=== PATIENT | male | born 1935 | race Caucasian/White ===

== ENCOUNTER 2017-10-30 19:04 | Emergency (ER) | payer MEDICARE, OTHER ==
--- NOTE | 2017-10-30 19:13 | EDM.PDOC ---
ED HPI GENERAL MEDICAL PROBLEM - General Chief Complaint: Gastrointestinal Problem Stated Complaint: constipated Time Seen by Provider: 10/30/17 19:12 Source of Information: Reports: Patient History Limitations: Reports: No Limitations - History of Present Illness INITIAL COMMENTS - FREE TEXT/NARRATIVE: HISTORY AND PHYSICAL: History of present illness: 82-year-old male presenting to emergency department with chief complaint of lower abdominal pain with past medical history of laryngeal and lung cancer currently being treated. Patient states he has not had a bowel movement for 10 days. This is common for him. He denies any history of bowel obstruction. Denies any bloody stool or dark tarry stools. States that on 10/24/17 he had a nasojejunal feeding tube placed in [facility]. It did come out he states yesterday and he put it in himself. Does report some chills, shakiness, and nausea and vomiting starting 2 days ago. No fevers, mild lower generalized abdominal pain. Does have a history of laryngeal and lung CA and has had a laryngectomy for this. Currently still being treated at oncology here in [place]. Full code. Currently denies any chest pain, palpitations, shortness of breath, syncopal episodes, or focal neurologic episodes. On exam nasojejual feeding tube is in place in nose. There's mild hypotonic bowel sounds no noted tympany. Mild generalized lower abdominal pain 2030: CBC,CMP, UA Unremarkable 2146: CT abdomen showed a subtle defect within the nephrogram of the right kidney, superior pole. Best seen on image 40, series 201. There was no perinephric inflammatory changes or fluid collection. The did recommend possible short-term ultrasound follow-up to assess persistence of the finding. Of note the feeding tube was found to be coiled within the stomach and there was no evidence of small bowel or colonic obstruction. There was also inverted findings of a fusiform infrarenal abdominal aortic aneurysm with dilation of the common iliac arteries and extensive degenerative atherosclerotic plaque. There is no retroperitoneal stranding or hematoma. Recommended sonographic surveillance of these findings. In addition, there was a spiculated area past the resident in the right lower lobe. Review of systems: As per history of present illness and below otherwise all systems reviewed and negative. Past medical history: As per history of present illness and as reviewed below otherwise noncontributory. Surgical history: As per history of present illness and as reviewed below otherwise noncontributory. Social history: No reported history of drug or alcohol abuse. Family history: As per history of present illness and as reviewed below otherwise noncontributory. Physical exam: HEENT: Atraumatic, normocephalic, pupils reactive, negative for conjunctival pallor or scleral icterus, mucous membranes moist, throat clear, neck supple, nontender, trachea midline. Lungs: Clear to auscultation, breath sounds equal bilaterally, chest nontender. Heart: S1S2, regular, negative for clicks, rubs, or JVD. Abdomen: Soft, nondistended, mild lower abdominal pain. Negative for masses or hepatosplenomegaly. Negative for costovertebral tenderness. Pelvis: Stable nontender. Genitourinary: Deferred. Rectal: Deferred. Extremities: Atraumatic, negative for cords or calf pain. Neurovascular unremarkable. Neuro: Awake, alert, oriented. Cranial nerves II through XII unremarkable. Cerebellum unremarkable. Motor and sensory unremarkable throughout. Exam nonfocal. Diagnostics: CBC, CMP, chest x-ray, UA/UC, CT abdomen and pelvis Therapeutics: 1 L normal saline Impression: Lower abdominal pain History laryngeal cancer History of lung cancer Constipation Plan: Please see H&P above: CBC, CMP, chest x-ray, UA, CT abdomen and pelvis were all unremarkable for new findings and patient most likely has constipation. Of note patient's nasojejunal tube was found to be coiled in the stomach. I discussed this with him and they're to call their surgeon tomorrow in [facility] for replacement. We did give the patient a Fleet enema for his constipation and patient did have a good bowel movement. Patient felt much improved after the bowel movement. He was discharged in good condition with instructions to call his surgeon tomorrow in [facility] for replacement of the nasojejunal tube. He is also following up with oncology tomorrow as well. We did talk about also returning the emergency department if he had any new or worsening symptoms. Definitive disposition and diagnosis as appropriate pending reevaluation and review of above. abdominal Pain Score (Numeric/FACES): 8 - Related Data Allergies Allergy/AdvReac Type Severity Reaction Status Date / Time No Known Allergies Allergy Verified 10/30/17 19:14 Home Meds: Home Meds Naloxegol Oxalate [Movantik] 25 mg PO DAILY 10/19/17 [History] Ondansetron HCl [Zofran] 8 mg PO ASDIRECTED PRN 10/19/17 [History] Promethazine HCl 25 mg PO ASDIRECTED PRN 10/19/17 [History] fentaNYL [Duragesic] 1 patch TRDERM ASDIRECTED 10/19/17 [History] Past Medical History HEENT History: Reports: Other (See Below) Other HEENT History: has dentures but does not wear them Cardiovascular History: Reports: CAD Respiratory History: Reports: COPD Gastrointestinal History: Reports: Colon Polyp, GERD Genitourinary History: Reports: BPH Oncologic (Cancer) History: Reports: Lung, Other (See Below) Other Oncologic History: laryngeal & lung cancer Dermatologic History: Reports: Psoriasis - Past Surgical History Head Surgeries/Procedures: Reports: None HEENT Surgical History: Reports: Other (See Below) Other HEENT Surgeries/Procedures: laryngectomy with stoma for laryngeal cancer Respiratory Surgical History: Reports: Other (See Below) Other Respiratory Surgeries/Procedures: laryngectomy with stoma GI Surgical History: Reports: Colonoscopy, Other (See Below) Other GI Surgeries/Procedures: hx gastrostomy tube placement and removal Oncologic Surgical History: Reports: Other (See Below) Other Oncologic Surgeries/Procedures: brian cath placement ED ROS GENERAL - Review of Systems Review Of Systems: ROS reveals no pertinent complaints other than HPI. ED EXAM, GENERAL - Physical Exam Exam: See Below Course - Vital Signs Last Recorded V/S: Last Vital Signs Temp 98.2 F 10/30/17 19:14 Pulse 97 10/30/17 19:37 Resp 18 10/30/17 19:37 BP 163/90 H 10/30/17 19:37 Pulse Ox 97 10/30/17 19:37 - Orders/Labs/Meds Orders: Active Orders 24 hr Category Date Time Status Enema [RC] ASDIRECTED Care 10/30/17 21:45 Active Abdomen Pelvis w Cont [CT] Stat Exams 10/30/17 19:38 Taken Chest 2V [CR] Stat Exams 10/30/17 19:38 Taken CULTURE URINE [RM] Stat Lab 10/30/17 20:25 Received UA W/MICROSCOPIC [URIN] Stat Lab 10/30/17 20:25 Ordered Sodium Chloride 0.9% [Saline Flush] Med 10/30/17 19:38 Active 10 ml FLUSH ASDIRECTED PRN Sodium Chloride 0.9% [Saline Flush] Med 10/30/17 19:38 Active 2.5 ml FLUSH ASDIRECTED PRN Sodium Chloride 0.9% [Saline Flush] Med 10/30/17 19:38 Active 2.5 ml FLUSH ASDIRECTED PRN Saline Lock Insert [OM.PC] Stat Oth 10/30/17 19:38 Ordered Medication Orders Sodium Chloride (Saline Flush) 2.5 ml FLUSH ASDIRECTED PRN PRN Reason: Keep Vein Open Sodium Chloride (Saline Flush) 10 ml FLUSH ASDIRECTED PRN PRN Reason: Keep Vein Open Sodium Chloride (Saline Flush) 2.5 ml FLUSH ASDIRECTED PRN PRN Reason: Keep Vein Open Labs: Laboratory Tests 10/30/17 10/30/17 10/30/17 Range/Units 20:00 20:00 20:25 WBC 8.34 (4.0-11.0) K/uL RBC 4.67 (4.50-5.90) M/uL Hgb 14.3 (13.0-17.0) g/dL Hct 41.6 (38.0-50.0) % MCV 89.1 (80.0-98.0) fL MCH 30.6 (27.0-32.0) pg MCHC 34.4 (31.0-37.0) g/dL RDW Std Deviation 49.3 (28.0-62.0) fl RDW Coeff of Stefani 16 H (11.0-15.0) % Plt Count 133 L (150-400) K/uL MPV 9.10 (7.40-12.00) fL Neut % (Auto) 78.4 (48.0-80.0) % Lymph % (Auto) 11.6 L (16.0-40.0) % [place] % (Auto) 9.4 (0.0-15.0) % Eos % (Auto) 0.2 (0.0-7.0) % Baso % (Auto) 0.4 (0.0-1.5) % Neut # (Auto) 6.5 H (1.4-5.7) K/uL Lymph # (Auto) 1.0 (0.6-2.4) K/uL [place] # (Auto) 0.8 (0.0-0.8) K/uL Eos # (Auto) 0.0 (0.0-0.7) K/uL Baso # (Auto) 0.0 (0.0-0.1) K/uL Nucleated RBC % 0.0 /100WBC Nucleated RBCs # 0 K/uL Sodium 136 (136-148) mmol/L Potassium 3.5 (3.5-5.1) mmol/L Chloride 98 (98-107) mmol/L Carbon Dioxide 28.2 (21.0-32.0) mmol/L BUN 9 (7.0-18.0) mg/dL Creatinine 0.8 (0.8-1.3) mg/dL Est Cr Clr Drug Dosing 65.41 mL/min Estimated GFR (MDRD) > 60.0 ml/min Glucose 84 (74-106) mg/dL Calcium 9.2 (8.5-10.1) mg/dL Total Bilirubin 0.7 (0.2-1.0) mg/dL AST 12 L (15-37) IU/L ALT 15 (14-63) IU/L Alkaline Phosphatase 81 (46-116) U/L Total Protein 6.9 (6.4-8.2) g/dL Albumin 3.3 L (3.4-5.0) g/dL Globulin 3.6 H (2.0-3.5) g/dL Albumin/Globulin Ratio 0.9 L (1.3-2.8) Lipase 60 L (73-393) U/L Urine Color YELLOW Urine Appearance HAZY Urine pH 6.0 (5.0-8.0) Ur Specific [place] 1.025 (1.001-1.035) Urine Protein TRACE (NEGATIVE) mg/dL Urine Glucose (UA) NEGATIVE (NEGATIVE) mg/dL Urine Ketones 15 H (NEGATIVE) mg/dL Urine Occult Blood NEGATIVE (NEGATIVE) Urine Nitrite NEGATIVE (NEGATIVE) Urine Bilirubin SMALL H (NEGATIVE) Urine Ictotest NEGATIVE Urine Urobilinogen 1.0 (<2.0) EU/dL Ur Leukocyte Esterase NEGATIVE (NEGATIVE) Urine RBC 0-2 (0-2/HPF) Urine WBC 0-2 (0-5/HPF) Ur Epithelial Cells RARE (NONE-FEW) Urine Bacteria FEW (NEGATIVE) Urine Mucus LIGHT (NONE-MOD) Meds: Medications Generic Name Dose Route Start Last Admin Trade Name Freq PRN Reason Stop Dose Admin Sodium Chloride 2.5 ml 10/30/17 19:38 Saline Flush FLUSH ASDIRECTED PRN Keep Vein Open Sodium Chloride 10 ml 10/30/17 19:38 Saline Flush FLUSH ASDIRECTED PRN Keep Vein Open Sodium Chloride 2.5 ml 10/30/17 19:38 Saline Flush FLUSH ASDIRECTED PRN Keep Vein Open Discontinued Medications Generic Name Dose Route Start Last Admin Trade Name Freq PRN Reason Stop Dose Admin Sodium Chloride 1,000 mls @ 999 mls/hr 10/30/17 19:38 10/30/17 20:12 Normal Saline IV 10/30/17 20:38 999 mls/hr BOLUS ONE Administration Iopamidol 100 ml 10/30/17 21:10 10/30/17 21:10 Isovue Multipack-370 (76%) IVPUSH 10/30/17 21:11 100 ml ONETIME STA Administration Ondansetron HCl 4 mg 10/30/17 19:38 10/30/17 20:13 Zofran IVPUSH 10/30/17 19:39 4 mg ONETIME ONE Administration Departure - Departure Time of Disposition: 22:31 Disposition: Home, Self-Care 01 Condition: Good Clinical Impression: Lower abdominal pain, History of lung cancer, History of laryngeal cancer Constipation Qualifiers: Constipation type: drug induced constipation Qualified Code(s): K59.03 - Drug induced constipation - Discharge Information Referrals: Dimas Jamil MD [Primary Care Provider] - Forms: ED Department Discharge Additional Instructions: My general discharge The following information is given to patients seen in the emergency department who are being discharged to home. This information is to outline your options for follow-up care. We provide all patients seen in our emergency department with a follow-up referral. The need for follow-up, as well as the timing and circumstances, are variable depending upon the specifics of your emergency department visit. If you don't have a primary care physician on staff, we will provide you with a referral. We always advise you to contact your personal physician following an emergency department visit to inform them of the circumstance of the visit and for follow-up with them and/or the need for any referrals to a consulting specialist. The emergency department will also refer you to a specialist when appropriate. This referral assures that you have the opportunity for follow-up care with a specialist. All of these measure are taken in an effort to provide you with optimal care, which includes your follow-up. Under all circumstances we always encourage you to contact your private physician who remains a resource for coordinating your care. When calling for follow-up care, please make the office aware that this follow-up is from your recent emergency room visit. If for any reason you are refused follow-up, please contact the [facility] Emergency Department at and asked to speak to the emergency department charge nurse. [facility] [address] [place] [id number] My General Surgery [facility] Specialty [facility] - General Surgery Professional Building [address] [place] [address], [address] [place] [address] Please follow-up with your general surgeon in [place] as we discussed for replacement of your nasojejunal tube as it is not in the correct spot and is coiled in your stomach as we discussed Return to the emergency department if any new or worsening symptoms as we discussed Follow-up with primary care provider. - My Orders Last 24 Hours: My Active Orders 10/30/17 19:38 Abdomen Pelvis w Cont [CT] Stat Chest 2V [CR] Stat Sodium Chloride 0.9% [Saline Flush] 10 ml FLUSH ASDIRECTED PRN Sodium Chloride 0.9% [Saline Flush] 2.5 ml FLUSH ASDIRECTED PRN Sodium Chloride 0.9% [Saline Flush] 2.5 ml FLUSH ASDIRECTED PRN Saline Lock Insert [OM.PC] Stat 10/30/17 20:25 CULTURE URINE [RM] Stat UA W/MICROSCOPIC [URIN] Stat 10/30/17 21:45 Enema [RC] ASDIRECTED - Assessment/Plan Last 24 Hours: My Active Orders 10/30/17 19:38 Abdomen Pelvis w Cont [CT] Stat Chest 2V [CR] Stat Sodium Chloride 0.9% [Saline Flush] 10 ml FLUSH ASDIRECTED PRN Sodium Chloride 0.9% [Saline Flush] 2.5 ml FLUSH ASDIRECTED PRN Sodium Chloride 0.9% [Saline Flush] 2.5 ml FLUSH ASDIRECTED PRN Saline Lock Insert [OM.PC] Stat 10/30/17 20:25 CULTURE URINE [RM] Stat UA W/MICROSCOPIC [URIN] Stat 10/30/17 21:45 Enema [RC] ASDIRECTED
[2017-10-30] MEDS ORDERED: Sodium Chloride 0.9% 2.5 ML Syringe FLUSH PRN ×2 (19:38)
[2017-10-30] MEDS ORDERED: Sodium Chloride 0.9% 1,000 ML IV ONE (19:38)
[2017-10-30] MEDS ORDERED: Ondansetron 4 MG/2 ML SDV IVPUSH ONE (19:38)
[2017-10-30] MEDS ORDERED: Sodium Chloride 0.9% 10 ML Syringe FLUSH PRN (19:38)
[2017-10-30 20:28] LABS: CHLORIDE,CL 98 mmol/L (98-107); SODIUM,NA 136 mmol/L (136-148)
[2017-10-30] MEDS ORDERED: Iopamidol 755 MG/ML 500 ML Multipack Bottle IVPUSH STA (21:10)
[2017-10-30 22:50] VITALS: BP 158/82
--- NOTE | 2017-10-31 15:20 | CR ---
EXAM DATE: 10/30/17 PATIENT'S AGE: 82 Patient: JAY DIEGO Facility: [place], [place] Site . Site : 1935 Study: XRay Chest [id number]/26/2018 9:11:34 PM Ordering Physician: Mukesh Jin Final Report: INDICATION: sob HISTORY: Shortness of breath. COMPARISON: None. TECHNIQUE: Chest, 2 views. FINDINGS: Diffuse pulmonary hyperinflation. There is no acute airspace disease. There is no pneumothorax. Heart size and pulmonary vasculature are within normal limits. Right IJ Port-A-Cath, with its tip in the SVC. There is an enteric catheter place, with its tip collimated off the field of view. IMPRESSION: 1. Pulmonary hyperinflation. 2. No acute airspace disease. Dictated by Jay Galloway MD @ 10/30/2017 9:31:05 PM Dictated by: Jay Galloway MD @ 10/30/2017 21:31:11 (Electronic Signature) Report Signed by Proxy. [facility]
--- NOTE | 2017-10-31 15:20 | CT ---
EXAM DATE: 10/30/17 PATIENT'S AGE: 82 Patient: GENA DIEGO Facility: [place], [place] Site . Site : 1935 Study: CT Abdomen/Pelvis [id number]/26/2018 9:12:51 PM Ordering Physician: Mukesh Jin Final Report: INDICATION: abdominal pain HISTORY: Abdominal pain. COMPARISON: KUB 10/27/2017. TECHNIQUE: CT of the abdomen and pelvis. 100 cc of Isovue-370 IV. Coronal/sagittal reconstruction images. FINDINGS: Lung bases: There is no pleural or pericardial effusion. The heart size is normal. Lung bases demonstrate linear scarring or atelectasis in the left lower lobe, lingula , and right middle lobe. There is an irregular opacity present in the right lower lobe which is indeterminate, measuring 18 mm in AP dimension. Formal chest CT may be obtained to further assess when clinically appropriate. Abdomen/pelvis: Low-dense hepatic lesions are compatible with benign cysts. No perihepatic ascites. No solid hepatic mass. No inflammatory changes about the gallbladder. Normal caliber biliary tree. There is a defect present in the nephrogram of the right kidney, which is seen best on image 70, series 203, and on series 201, image 40. This is nonspecific. There is no perinephric fluid collection. The spleen size is normal. There is no pancreatic mass. No pancreatic duct dilation. No glandular atrophy. There is a feeding tube in place. The catheter appears coiled within the stomach, with its tip in the distal body. There is no free air. Distended ahmadi of the urinary bladder. No wall thickening. Probable TURP defect in the prostate. Seminal vesicles appear symmetric. There is enteric contrast present in the colon. Diverticulosis present in the colon. No findings for diverticulitis. No wall thickening. No perienteric edema. No transition point to indicate a mechanical small bowel or colonic obstruction. The celiac axis and SMA are patent. GUILLERMO is patent. There is a fusiform infrarenal abdominal aortic aneurysm with no inflammatory stranding. There is extensive mural thrombus and calcific plaque. The aneurysm measures a maximum of 4.0 x 4.4 cm in AP and transverse dimensions. Right common iliac artery measures up to 18 mm in dimension. Left common iliac artery measures up to 16 mm in dimension. No adenopathy is seen by size criteria in the pelvis, retroperitoneum, gastrohepatic ligament, small bowel mesentery. No portal vein thrombosis. The SMV and splenic vein are patent. The bone windows demonstrate no lytic or blastic bone lesions. Degenerative changes are present throughout the endplates of the thoracolumbar spine. On sagittal reconstruction images, there is disc height loss and osteophytic spurring at the lumbosacral junction. Minimal anterolisthesis of L4 on L5. IMPRESSION: 1. Subtle defect within the nephrogram of the right kidney, superior pole. This is seen best on image 40, series 201. 2. There are no perinephric inflammatory changes or fluid collection. A short- term ultrasound follow-up is suggested to assess for persistence of this finding. This is seen along the medial aspect of the superior pole. 3. Feeding tube is coiled within the stomach. No evidence for a small bowel or colonic obstruction. 4. Fusiform infrarenal abdominal aortic aneurysm, with dilation of the common iliac arteries, and extensive degenerative atherosclerotic plaque. No retroperitoneal stranding or hematoma. Sonographic surveillance is suggested for this finding. 5. Spiculated pulmonary opacity present in the right lower lobe. See above discussion. Dictated by Gena Galloway MD @ 10/30/2017 9:39:11 PM Please note that all CT scans at this facility use dose modulation, iterative reconstruction, and/or weight-based dosing when appropriate to reduce radiation dose to as low as reasonably achievable. Dictated by: Gena Galloway MD @ 10/30/2017 21:39:28 (Electronic Signature) Report Signed by Proxy. [facility]
== END 2017-10-30 22:46 | disposition home or self-care (01) ==
LOC: MW.ED 19:04
DX: K59.03 Drug induced constipation (principal); Z79.899 Other long term (current) drug therapy; Z85.118 Personal history of other malignant neoplasm of bronchus and lung; Z85.21 Personal history of malignant neoplasm of larynx
CPT/HCPCS: 36415; 71046; 74177; 80053; 81001; 83690; 85025; 87086; 96361; 96374; 99284; J2405; J7040; Q9967; 99283

== ENCOUNTER 2017-11-04 06:33 | Day surgery (SDC) | payer MEDICARE, OTHER ==
--- NOTE | 2017-10-24 07:27 | PCM.PREANE ---
Preanesthetic Assessment - Procedure Proposed Procedure: EGD/PEG tube placement - Anesthesia/Transfusion/Family Hx Anesthesia History: Prior Anesthesia Without Reaction Family History of Anesthesia Reaction: No Transfusion History: No Prior Transfusion(s) - Review of Systems General: Appetite (loss; prior PEG before laryngectomy), Other Pulmonary: Other (maintenance of traceostomy) Cardiovascular: Other (CAD) - Physical Assessment NPO Status Date: 10/23/17 NPO Status Time: 22:00 Height: 5 ft 10 in Weight: 153 lb ASA Class: 3 Mental Status: Alert & Oriented x3 Dentition: Reports: Edentulous Thyro-Mental Finger Breadths: 4 Mouth Opening Finger Breadths: 3 ROM/Head Extension: Limited/Partial Lungs: Clear to Auscultation, Normal Respiratory Effort, Other (permanent trach stoma) Cardiovascular: Regular Rate, Regular Rhythm, No Murmurs - Allergies Allergies/Adverse Reactions: Allergies Allergy/AdvReac Type Severity Reaction Status Date / Time No Known Allergies Allergy Verified 10/19/17 08:03 - Blood Blood Available: No Product(s) Available: None - Anesthesia Plan Pre-Op Medication Ordered: None - Acknowledgements Anesthesia Type Planned: MAC (local by surgeon for PEG, tongue spray; possible general) Pt an Appropriate Candidate for the Planned Anesthesia: Yes Alternatives and Risks of Anesthesia Discussed w Pt/Guardian: Yes Pt/Guardian Understands and Agrees with Anesthesia Plan: Yes PreAnesthesia Questionnaire HEENT History: Reports: Other (See Below) Other HEENT History: has dentures but does not wear them Cardiovascular History: Reports: CAD Respiratory History: Reports: COPD Gastrointestinal History: Reports: Colon Polyp, GERD Genitourinary History: Reports: BPH Oncologic (Cancer) History: Reports: Lung, Other (See Below) Other Oncologic History: laryngeal & lung cancer Dermatologic History: Reports: Psoriasis - Past Surgical History Head Surgeries/Procedures: Reports: None HEENT Surgical History: Reports: Other (See Below) Other HEENT Surgeries/Procedures: laryngectomy with stoma for laryngeal cancer Respiratory Surgical History: Reports: Other (See Below) Other Respiratory Surgeries/Procedures: laryngectomy with stoma GI Surgical History: Reports: Colonoscopy, Other (See Below) Other GI Surgeries/Procedures: hx gastrostomy tube placement and removal Oncologic Surgical History: Reports: Other (See Below) Other Oncologic Surgeries/Procedures: brian cath placement - SUBSTANCE USE Smoking Status *Q: Former Smoker Recreational Drug Use History: No - HOME MEDS Home Medications: Home Meds Morphine Sulfate 1 dose PO ASDIRECTED PRN 10/19/17 [History] Naloxegol Oxalate [Movantik] 25 mg PO DAILY 10/19/17 [History] Ondansetron HCl [Zofran] 8 mg PO ASDIRECTED PRN 10/19/17 [History] Pegfilgrastim [Neulasta] 1 dose IV ONETIME 10/19/17 [History] Promethazine HCl 25 mg PO ASDIRECTED PRN 10/19/17 [History] Promethazine HCl [Phenergan] 25 mg RECTAL ASDIRECTED PRN 10/19/17 [History] Ranitidine HCl 150 mg PO BEDTIME 10/19/17 [History] fentaNYL [Duragesic] 1 patch TRDERM ASDIRECTED 10/19/17 [History] - CURRENT (IN HOUSE) MEDS Current Meds: Current Medications Lactated Ringer's (Ringers, Lactated) 1,000 mls @ 125 mls/hr IV ASDIRECTED BECCA Discontinued Medications Cefoxitin Sodium 2 gm/ Premix 50 mls @ 100 mls/hr IV ONETIME ONE Stop: 10/24/17 06:29
[~2017-11-04 06:33] MED LIST: Bupivacaine 0.5% 10 ML SDV ONE; Desflurane 240 ML Bottle ONE; Lactated Ringers 1,000 ML IV SCH; Lidocaine 2% Jelly 30 ML Tube ONE; Midazolam 1 MG/ML 2 ML SDV ONE; Propofol 200 MG/20 ML SDV ONE; Sodium Chloride 0.9% 20 ML ONE; cefOXitin 1 GM Vial ONE; cefOXitin 2 GM in Premix Bag 1 BAG IV ONE
[2017-11-04] MEDS ORDERED: Ondansetron 4 MG/2 ML SDV ONE ×2 (07:12→07:18)
[2017-11-04] MEDS ORDERED: Propofol 200 MG/20 ML SDV ONE ×2 (07:15)
[2017-11-04] MEDS ORDERED: Midazolam 1 MG/ML 2 ML SDV ONE (07:16)
[2017-11-04] MEDS ORDERED: fentaNYL 100 MCG/2 ML SDV ONE ×2 (07:16→09:48)
[2017-11-04] MEDS ORDERED: Bupivacaine 0.5% 10 ML SDV ONE (07:38)
[2017-11-04] MEDS ORDERED: Sugammadex Sodium 200 MG/2 ML VIAL ONE (08:55)
[2017-11-04] MEDS ORDERED: Acetaminophen/HYDROcodone 325-5 MG Tab PO PRN (09:18)
[2017-11-04] MEDS ORDERED: Ondansetron 4 MG/2 ML SDV IVPUSH PRN (09:18)
--- NOTE | 2017-11-04 09:28 | PCM.OPNOTE ---
- General Post-Op/Procedure Note Date of Surgery/Procedure: 11/04/17 Operative Procedure(s): Attempted percutaneous endoscopic gastrostomy. Open surgical gastrostomy with 22 Lithuanian feeding tube. 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 Asst. needed for both procedures, especially for retraction. Role of Documentation Designer: bacteriology research assistant Fluid Replacement, Intraop: 1,200 EBL in mLs: 10 Drain/Tube Comments:: 22 Lithuanian feeding tube Condition: Good Free Text/Narrative:: DICTATION [id number] CPT CODE 64673
[2017-11-04] MEDS: Morphine 10 MG/ML Syringe IVPUSH PRN ×2 (09:30→09:37)
[2017-11-04] MEDS ORDERED: Lactated Ringers 1,000 ML IV SCH (09:30)
[2017-11-04] MEDS ORDERED: fentaNYL 100 MCG/2 ML SDV IVPUSH PRN (09:46)
--- NOTE | 2017-11-04 09:49 | PCM.POSTAN ---
POST ANESTHESIA ASSESSMENT - MENTAL STATUS Mental Status: Alert, Oriented - RESPIRATORY Respiratory Status: Respiratory Rate WNL, Airway Patent, O2 Saturation Stable - CARDIOVASCULAR CV Status: Pulse Rate WNL, Blood Pressure Stable - GASTROINTESTINAL GI Status: No Symptoms - PAIN Pain Score: 6 (tx with MS and fentanyl in PAR) - POST OP HYDRATION Hydration Status: Adequate & Stable - OBSERVATIONS Free Text/Narrative:: since he is continuously on narcotic at home, his requirement is greater. see orders and responses.
--- NOTE | 2017-11-04 13:20 | PCM48HPAN ---
Post Anesthesia Note - EVALUATION WITHIN 48HRS OF ANESTHETIC Vital Signs in Normal Range: Yes Patient Participated in Evaluation: Yes Respiratory Function Stable: Yes Airway Patent: Yes Cardiovascular Function Stable: Yes Hydration Status Stable: Yes Pain Control Satisfactory: Yes Nausea and Vomiting Control Satisfactory: Yes Mental Status Recovered: Yes Resp Rate: 10
[2017-11-04 13:56] VITALS: BP 157/71
--- NOTE | 2017-11-08 10:29 | OR ---
SURGEON: Serafin Rodriguez M.D. DATE OF PROCEDURE: 11/04/2017 OPERATION PERFORMED: Attempted percutaneous gastrostomy with completion open surgical gastrostomy. SECURITY INSTALLATION TECHNICIAN: Stacie Jara MD. ANESTHESIA: General via permanent tracheostomy. 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 ASA CLASSIFICATION: III. INTRAOPERATIVE BLOOD LOSS: 10 mL. INTRAOPERATIVE FLUID REPLACEMENT: 1200 mL of crystalloid. DESCRIPTION OF PROCEDURE: The patient was taken to the operating room and placed on the operating table in the supine position. Time-out was obtained for appropriate identification of patient and procedure. The patient was given a general anesthetic with the endotracheal tube placed through his permanent tracheostomy. A bite block was placed between the patient's teeth and the gastroscope was inserted into the oropharynx. We could follow the nasal feeding tube down, but we could never traverse the recurrent disease and the procedure was terminated as there was concern that there would be bleeding and we would not be able to place the tube. Therefore, the decision was made to convert to an open procedure. With the patient maintained under general endotracheal anesthesia, the abdomen was prepped with DuraPrep solution. Sterile drapes were applied. Appropriate site for skin incision in the upper abdomen was made and infiltrated with 1% xylocaine. The skin incision was made and deepened through the subcutaneous tissue obtaining hemostasis with the use of electrocautery. The fascia was opened in the midline and the peritoneal cavity was entered. Adhesions from his previous gastrostomy were taken down. Appropriate site on the stomach was identified and concentric pursestring sutures of 2-0 silk suture were placed and held with hemostats. Appropriate site on the anterior abdominal wall was chosen for placement of the feeding tube. The skin incision was made and again hemostasis obtained with the use of electrocautery. The peritoneal cavity was entered with a Carm[place] clamp and the 22-Lithuanian feeding tube was positioned through that incision into the peritoneal cavity. A small surgical gastrostomy was made using electrocautery. The balloon was checked and was complete. The catheter was then inserted into the stomach and the balloon inflated with 12 mL of saline solution. The balloon was then snugged up against the anterior gastric wall. Two more sutures were placed on the stomach and the stomach was then tacked to the anterior abdominal wall with a total of 4 sutures. The catheter was irrigated and flushed easily. The sutures were cut to appropriate length and the catheter secured to the skin with 2-0 silk sutures. The midline fascia was then closed with interrupted 0 Ethibond. The skin was infiltrated the second time with 6 mL of 0.5% Marcaine solution. Subcutaneous tissue was closed with running 3-0 Vicryl and the skin edges reapproximated with subcuticular 4-0 Monocryl. The incision was then Steri-Stripped. Dressing sponge was placed over the gastrostomy site and the incision was dressed with a sterile Tegaderm pad. Sponge, needle, and instrument counts were all correct. The patient tolerated the procedure well and following emergence from anesthesia and extubation, was taken to recovery room in satisfactory condition. LANA TOBAR /[id number]
== END 2017-11-04 12:15 | disposition home or self-care (01) ==
LOC: MW.SDS 06:33
PROVIDERS: ATTEND Surgery
DX: C32.9 Malignant neoplasm of larynx, unspecified (principal); Z53.9 Procedure and treatment not carried out, unspecified reason; J44.9 Chronic obstructive pulmonary disease, unspecified; I25.10 Atherosclerotic heart disease of native coronary artery without angina pectoris; Z87.891 Personal history of nicotine dependence; Z79.899 Other long term (current) drug therapy
CPT/HCPCS: 36415; 85025; J2250; J2270; J2405; J2704; J3010; J3490; J7120; J0694

== ENCOUNTER 2017-11-07 09:20 | Inpatient (IN) | payer MEDICARE, OTHER ==
[2017-11-07] MEDS ORDERED: Ondansetron 4 MG/2 ML SDV IVPUSH ONE (09:31)
[2017-11-07] MEDS ORDERED: Sodium Chloride 0.9% 1,000 ML IV ONE (09:31)
[2017-11-07] MEDS ORDERED: Sodium Chloride 0.9% 2.5 ML Syringe FLUSH PRN (09:31)
[2017-11-07] MEDS ORDERED: Sodium Chloride 0.9% 10 ML Syringe FLUSH PRN (09:31)
[2017-11-07] MEDS ORDERED: fentaNYL 100 MCG/2 ML SDV IVPUSH ONE (09:31)
--- NOTE | 2017-11-07 09:39 | EDM.PDOC ---
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 There's been no fever or chills he has been nauseous but no vomiting. Review of systems: As per history of present illness and below otherwise all systems reviewed and negative. Past medical history: As per history of present illness and as reviewed below otherwise noncontributory. Surgical history: As per history of present illness and as reviewed below otherwise noncontributory. Social history: No reported history of drug or alcohol abuse. Family history: As per history of present illness and as reviewed below otherwise noncontributory. Physical exam: HEENT: Atraumatic, normocephalic, pupils reactive, mild conjunctival pallor no scleral icterus, mucous membranes dry, throat clear, neck supple, nontender, trachea midline. Lungs: Clear to auscultation, breath sounds equal bilaterally, chest nontender. Heart: S1S2, regular, negative for clicks, rubs, or JVD. Abdomen: Soft, nondistended, no localized tenderness Negative for masses or hepatosplenomegaly. Negative for costovertebral tenderness. Pelvis: Stable nontender. Genitourinary: Deferred. Rectal: Deferred. Extremities: Atraumatic, negative for cords or calf pain. Neurovascular unremarkable. Neuro: Awake, alert, oriented. Follows commands and moves all extremities limited grossly nonfocal exam Diagnostics: CBC CMP PT/INR amylase lipase UA urine culture blood culture chest x-ray CT abdomen and pelvis EKG Therapeutics: Normal saline 1 L bolus fentanyl 50 g IV Zofran 4 mg IV Impression: #1 metastatic head and neck cancer #2 abdominal pain #3 dehydration Definitive disposition and diagnosis as appropriate pending reevaluation and review of above. - Related Data Allergies Allergy/AdvReac Type Severity Reaction Status Date / Time No Known Allergies Allergy Verified 10/30/17 19:14 Home Meds: Home Meds Naloxegol Oxalate [Movantik] 25 mg PO DAILY 10/19/17 [History] Ondansetron HCl [Zofran] 8 mg PO ASDIRECTED PRN 10/19/17 [History] Promethazine HCl 25 mg PO ASDIRECTED PRN 10/19/17 [History] fentaNYL [Duragesic] 50 mcg TRDERM ASDIRECTED 10/19/17 [History] Past Medical History HEENT History: Reports: Other (See Below) Other HEENT History: has dentures but does not wear them Cardiovascular History: Reports: CAD Respiratory History: Reports: COPD Gastrointestinal History: Reports: Colon Polyp, GERD Genitourinary History: Reports: BPH Oncologic (Cancer) History: Reports: Lung, Other (See Below) Other Oncologic History: laryngeal & lung cancer Dermatologic History: Reports: Psoriasis - Infectious Disease History Infectious Disease History: Reports: Chicken Pox, Measles, Mumps - Past Surgical History Head Surgeries/Procedures: Reports: None HEENT Surgical History: Reports: Other (See Below) Other HEENT Surgeries/Procedures: laryngectomy with stoma for laryngeal cancer Respiratory Surgical History: Reports: Other (See Below) Other Respiratory Surgeries/Procedures: laryngectomy with stoma GI Surgical History: Reports: Colonoscopy, Other (See Below) Other GI Surgeries/Procedures: hx gastrostomy tube placement and removal Oncologic Surgical History: Reports: Other (See Below) Other Oncologic Surgeries/Procedures: brian cath placement Social & Family History - Family History Family Medical History: Noncontributory ED ROS GENERAL - Review of Systems Review Of Systems: ROS reveals no pertinent complaints other than HPI. ED EXAM, GENERAL - Physical Exam Exam: See Below (dictation) Course - Vital Signs Last Recorded V/S: Last Vital Signs Temp 96.8 C H 11/07/17 09:31 Pulse 89 11/07/17 09:31 Resp 18 11/07/17 09:31 BP Pulse Ox 95 11/07/17 09:31 - Orders/Labs/Meds Orders: Active Orders 24 hr Category Date Time Status EKG Documentation Completion [RC] STAT Care 11/07/17 09:30 Active Pulse Oximetry [RC] ASDIRECTED Care 11/07/17 09:30 Active Abdomen Pelvis wo Cont [CT] Stat Exams 11/07/17 09:31 Taken Chest 1V Frontal [CR] Stat Exams 11/07/17 09:31 Taken CULTURE BLOOD [BC] Stat Lab 11/07/17 09:47 Received CULTURE BLOOD [BC] Stat Lab 11/07/17 10:45 Received CULTURE URINE [RM] Stat Lab 11/07/17 09:31 Ordered UA W/O MICROSCOPIC [URIN] Stat Lab 11/07/17 09:31 Ordered Sodium Chloride 0.9% [Saline Flush] Med 11/07/17 09:31 Active 10 ml FLUSH ASDIRECTED PRN Sodium Chloride 0.9% [Saline Flush] Med 11/07/17 09:31 Active 2.5 ml FLUSH ASDIRECTED PRN Vancomycin [Vancocin] 1 gm Med 11/07/17 11:12 Active Sodium Chloride 0.9% [Normal Saline] 250 ml IV ONETIME Blood Culture x2 Reflex Set [OM.PC] Stat Oth 11/07/17 09:31 Ordered Saline Lock Insert [OM.PC] Stat Oth 11/07/17 09:30 Ordered Medication Orders Vancomycin HCl 1 gm/ Sodium (Chloride) 250 mls @ 166 mls/hr IV ONETIME ONE Stop: 11/07/17 12:42 Sodium Chloride (Saline Flush) 10 ml FLUSH ASDIRECTED PRN PRN Reason: Keep Vein Open Sodium Chloride (Saline Flush) 2.5 ml FLUSH ASDIRECTED PRN PRN Reason: Keep Vein Open Labs: Laboratory Tests 11/07/17 11/07/17 11/07/17 Range/Units 09:47 09:47 09:47 WBC 23.13 H (4.0-11.0) K/uL RBC 3.99 L (4.50-5.90) M/uL Hgb 12.4 L (13.0-17.0) g/dL Hct 36.3 L (38.0-50.0) % MCV 91.0 (80.0-98.0) fL MCH 31.1 (27.0-32.0) pg MCHC 34.2 (31.0-37.0) g/dL RDW Std Deviation 55.0 (28.0-62.0) fl RDW Coeff of Stefani 17 H (11.0-15.0) % Plt Count 96 L (150-400) K/uL MPV 9.60 (7.40-12.00) fL Add Manual Diff YES Neutrophils % (Manual) 87 H (48.0-80.0) % Band Neutrophils % 9 % Lymphocytes % (Manual) 3 L (16.0-40.0) % Monocytes % (Manual) 1 (0.0-15.0) % Nucleated RBC % 0.0 /100WBC Absolute Seg Neuts 20.1 H (1.4-5.7) Band Neutrophils # 2.1 Lymphocytes # (Manual) 0.7 (0.6-2.4) Monocytes # (Manual) 0.2 (0.0-0.8) Nucleated RBCs # 0 K/uL INR 1.10 Sodium 138 (136-148) mmol/L Potassium 4.0 (3.5-5.1) mmol/L Chloride 100 (98-107) mmol/L Carbon Dioxide 29.9 (21.0-32.0) mmol/L BUN 10 (7.0-18.0) mg/dL Creatinine 0.8 (0.8-1.3) mg/dL Est Cr Clr Drug Dosing TNP Estimated GFR (MDRD) > 60.0 ml/min Glucose 122 H (74-106) mg/dL Calcium 8.8 (8.5-10.1) mg/dL Total Bilirubin 1.0 (0.2-1.0) mg/dL AST 31 (15-37) IU/L ALT 24 (14-63) IU/L Alkaline Phosphatase 100 (46-116) U/L Total Protein 6.8 (6.4-8.2) g/dL Albumin 3.2 L (3.4-5.0) g/dL Globulin 3.6 H (2.0-3.5) g/dL Albumin/Globulin Ratio 0.9 L (1.3-2.8) Amylase 21 L (25-115) U/L Lipase 60 L (73-393) U/L Meds: Medications Generic Name Dose Route Start Last Admin Trade Name Freq PRN Reason Stop Dose Admin Vancomycin HCl 1 gm/ Sodium 250 mls @ 166 mls/hr 11/07/17 11:12 Chloride IV 11/07/17 12:42 ONETIME ONE Sodium Chloride 10 ml 11/07/17 09:31 Saline Flush FLUSH ASDIRECTED PRN Keep Vein Open Sodium Chloride 2.5 ml 11/07/17 09:31 Saline Flush FLUSH ASDIRECTED PRN Keep Vein Open Discontinued Medications Generic Name Dose Route Start Last Admin Trade Name Freq PRN Reason Stop Dose Admin Fentanyl 50 mcg 11/07/17 09:31 11/07/17 10:52 Sublimaze IVPUSH 11/07/17 09:32 50 mcg ONETIME ONE Administration Sodium Chloride 1,000 mls @ 999 mls/hr 11/07/17 09:31 Normal Saline IV 11/07/17 10:31 STAT ONE Piperacillin Sod/Tazobactam 50 mls @ 100 mls/hr 11/07/17 10:49 Sod 3.375 gm/ Sodium Chloride IV 11/07/17 11:18 ONETIME ONE Ondansetron HCl 4 mg 11/07/17 09:31 11/07/17 10:52 Zofran IVPUSH 11/07/17 09:32 4 mg ONETIME ONE Administration Departure - Departure Time of Disposition: 11:20 Disposition: Admitted As Inpatient 65 Condition: Serious Clinical Impression: Abdominal pain, Metastatic cancer, Leukocytosis, Hypoxemia - Discharge Information Referrals: PCP,None [Primary Care Provider] - Forms: ED Department Discharge - My Orders Last 24 Hours: My Active Orders 11/07/17 09:30 EKG Documentation Completion [RC] STAT Pulse Oximetry [RC] ASDIRECTED Saline Lock Insert [OM.PC] Stat 11/07/17 09:31 Abdomen Pelvis wo Cont [CT] Stat Chest 1V Frontal [CR] Stat CULTURE URINE [RM] Stat UA W/O MICROSCOPIC [URIN] Stat Sodium Chloride 0.9% [Saline Flush] 10 ml FLUSH ASDIRECTED PRN Sodium Chloride 0.9% [Saline Flush] 2.5 ml FLUSH ASDIRECTED PRN Blood Culture x2 Reflex Set [OM.PC] Stat 11/07/17 09:47 CULTURE BLOOD [BC] Stat 11/07/17 10:45 CULTURE BLOOD [BC] Stat 11/07/17 11:12 Vancomycin [Vancocin] 1 gm Sodium Chloride 0.9% [Normal Saline] 250 ml IV ONETIME - Assessment/Plan Last 24 Hours: My Active Orders 11/07/17 09:30 EKG Documentation Completion [RC] STAT Pulse Oximetry [RC] ASDIRECTED Saline Lock Insert [OM.PC] Stat 11/07/17 09:31 Abdomen Pelvis wo Cont [CT] Stat Chest 1V Frontal [CR] Stat CULTURE URINE [RM] Stat UA W/O MICROSCOPIC [URIN] Stat Sodium Chloride 0.9% [Saline Flush] 10 ml FLUSH ASDIRECTED PRN Sodium Chloride 0.9% [Saline Flush] 2.5 ml FLUSH ASDIRECTED PRN Blood Culture x2 Reflex Set [OM.PC] Stat 11/07/17 09:47 CULTURE BLOOD [BC] Stat 11/07/17 10:45 CULTURE BLOOD [BC] Stat 11/07/17 11:12 Vancomycin [Vancocin] 1 gm Sodium Chloride 0.9% [Normal Saline] 250 ml IV ONETIME
[2017-11-07 10:15] LABS: CHLORIDE,CL 100 mmol/L (98-107); SODIUM,NA 138 mmol/L (136-148)
[2017-11-07] MEDS ORDERED: Piperacillin/Tazobactam 3.375 GM in Sodium Chloride 0.9% 50 ML IV ONE (10:49)
[2017-11-07] MEDS ORDERED: fentaNYL 50 MCG/HR Transdermal Patch TRDERM SCH (13:15)
[2017-11-07] MEDS ORDERED: Heparin Sodium 5,000 Units/ML Vial SUBCUT SCH (13:15)
[2017-11-07] MEDS ORDERED: Morphine 10 MG/ML Syringe IVPUSH PRN (13:15)
[2017-11-07] MEDS ORDERED: Ondansetron 4 MG/2 ML SDV IVPUSH PRN (13:15)
--- NOTE | 2017-11-07 13:25 | PCM.HP ---
H&P History of Present Illness - General Date of Service: 11/07/17 Admit Problem/Dx: Admission Diagnosis/Problem Admission Diagnosis/Problem Abdominal pain - History of Present Illness Initial Comments - Free Text/Narative: 82 yo male with pmh of head and neck cancer with mets to lung. He had G-tube placement on Tuesday and recently had chemotherapy with neulasta. Following G- tube placement he had increasing amount of abdominal pain that worsens with feeding. Reports nausea, but denies any blood in stool, fevers, cough, or shortness of breath. CT of the abdomen performed in ED shows G-tube in proper place but with large amount of free intraperitoneal air. Left Arm Pain Score (Numeric/FACES): 8 Abdomen Pain Score (Numeric/FACES): 2 - Related Data Allergies/Adverse Reactions: Allergies Allergy/AdvReac Type Severity Reaction Status Date / Time No Known Allergies Allergy Verified 10/30/17 19:14 Home Medications: Home Meds Naloxegol Oxalate [Movantik] 25 mg PO DAILY 10/19/17 [History] Ondansetron HCl [Zofran] 8 mg PO ASDIRECTED PRN 10/19/17 [History] Promethazine HCl 25 mg PO ASDIRECTED PRN 10/19/17 [History] fentaNYL [Duragesic] 50 mcg TRDERM ASDIRECTED 10/19/17 [History] Past Medical History HEENT History: Reports: Other (See Below) Other HEENT History: has dentures but does not wear them Cardiovascular History: Reports: CAD Respiratory History: Reports: COPD Gastrointestinal History: Reports: Colon Polyp, GERD Genitourinary History: Reports: BPH Psychiatric History: Reports: None Oncologic (Cancer) History: Reports: Lung, Other (See Below) Other Oncologic History: laryngeal & lung cancer Dermatologic History: Reports: Psoriasis - Infectious Disease History Infectious Disease History: Reports: Chicken Pox, Measles, Mumps - Past Surgical History Head Surgeries/Procedures: Reports: None HEENT Surgical History: Reports: Other (See Below) Other HEENT Surgeries/Procedures: laryngectomy with stoma for laryngeal cancer Respiratory Surgical History: Reports: Other (See Below) Other Respiratory Surgeries/Procedures: laryngectomy with stoma GI Surgical History: Reports: Colonoscopy, Other (See Below) Other GI Surgeries/Procedures: hx gastrostomy tube placement and removal Oncologic Surgical History: Reports: Other (See Below) Other Oncologic Surgeries/Procedures: brian cath placement Social & Family History - Family History Family Medical History: Noncontributory - Tobacco Use Smoking Status *Q: Former Smoker Used Tobacco, but Quit: Yes Month/Year Tobacco Last Used: 03/2013 - Caffeine Use Caffeine Use: Reports: None - Recreational Drug Use Recreational Drug Use: No H&P Review of Systems - Review of Systems: Review Of Systems: ROS reveals no pertinent complaints other than HPI. Exam - Exam Exam: See Below - Vital Signs Vital Signs: Last Vital Signs Temp 96.8 C H 11/07/17 09:31 Pulse 89 11/07/17 09:31 Resp 18 11/07/17 09:31 BP Pulse Ox 95 11/07/17 09:31 Weight: 70.6 kg - Exam General: Alert, Oriented HEENT: Conjunctiva Clear Lungs: Clear to Auscultation, Normal Respiratory Effort Cardiovascular: Regular Rate, Regular Rhythm GI/Abdominal Exam: Soft, Non-Tender, No Distention, Other (G-tube in place) Extremities: Non-Tender, No Pedal Edema Skin: Warm, Dry, Intact - Patient Data Lab Results Last 24 hrs: Laboratory Results - last 24 hr 11/07/17 11/07/17 11/07/17 Range/Units 09:47 09:47 09:47 WBC 23.13 H (4.0-11.0) K/uL RBC 3.99 L (4.50-5.90) M/uL Hgb 12.4 L (13.0-17.0) g/dL Hct 36.3 L (38.0-50.0) % MCV 91.0 (80.0-98.0) fL MCH 31.1 (27.0-32.0) pg MCHC 34.2 (31.0-37.0) g/dL RDW Std Deviation 55.0 (28.0-62.0) fl RDW Coeff of Stefani 17 H (11.0-15.0) % Plt Count 96 L (150-400) K/uL MPV 9.60 (7.40-12.00) fL Add Manual Diff YES Neutrophils % (Manual) 87 H (48.0-80.0) % Band Neutrophils % 9 % Lymphocytes % (Manual) 3 L (16.0-40.0) % Monocytes % (Manual) 1 (0.0-15.0) % Nucleated RBC % 0.0 /100WBC Absolute Seg Neuts 20.1 H (1.4-5.7) Band Neutrophils # 2.1 Lymphocytes # (Manual) 0.7 (0.6-2.4) Monocytes # (Manual) 0.2 (0.0-0.8) Nucleated RBCs # 0 K/uL INR 1.10 Lactate (0.20-2.00) mmol/L Sodium 138 (136-148) mmol/L Potassium 4.0 (3.5-5.1) mmol/L Chloride 100 (98-107) mmol/L Carbon Dioxide 29.9 (21.0-32.0) mmol/L BUN 10 (7.0-18.0) mg/dL Creatinine 0.8 (0.8-1.3) mg/dL Est Cr Clr Drug Dosing TNP Estimated GFR (MDRD) > 60.0 ml/min Glucose 122 H (74-106) mg/dL Calcium 8.8 (8.5-10.1) mg/dL Total Bilirubin 1.0 (0.2-1.0) mg/dL AST 31 (15-37) IU/L ALT 24 (14-63) IU/L Alkaline Phosphatase 100 (46-116) U/L Total Protein 6.8 (6.4-8.2) g/dL Albumin 3.2 L (3.4-5.0) g/dL Globulin 3.6 H (2.0-3.5) g/dL Albumin/Globulin Ratio 0.9 L (1.3-2.8) Amylase 21 L (25-115) U/L Lipase 60 L (73-393) U/L 11/07/17 Range/Units 09:50 WBC (4.0-11.0) K/uL RBC (4.50-5.90) M/uL Hgb (13.0-17.0) g/dL Hct (38.0-50.0) % MCV (80.0-98.0) fL MCH (27.0-32.0) pg MCHC (31.0-37.0) g/dL RDW Std Deviation (28.0-62.0) fl RDW Coeff of Stefani (11.0-15.0) % Plt Count (150-400) K/uL MPV (7.40-12.00) fL Add Manual Diff Neutrophils % (Manual) (48.0-80.0) % Band Neutrophils % % Lymphocytes % (Manual) (16.0-40.0) % Monocytes % (Manual) (0.0-15.0) % Nucleated RBC % /100WBC Absolute Seg Neuts (1.4-5.7) Band Neutrophils # Lymphocytes # (Manual) (0.6-2.4) Monocytes # (Manual) (0.0-0.8) Nucleated RBCs # K/uL INR Lactate 1.4 (0.20-2.00) mmol/L Sodium (136-148) mmol/L Potassium (3.5-5.1) mmol/L Chloride (98-107) mmol/L Carbon Dioxide (21.0-32.0) mmol/L BUN (7.0-18.0) mg/dL Creatinine (0.8-1.3) mg/dL Est Cr Clr Drug Dosing Estimated GFR (MDRD) ml/min Glucose (74-106) mg/dL Calcium (8.5-10.1) mg/dL Total Bilirubin (0.2-1.0) mg/dL AST (15-37) IU/L ALT (14-63) IU/L Alkaline Phosphatase (46-116) U/L Total Protein (6.4-8.2) g/dL Albumin (3.4-5.0) g/dL Globulin (2.0-3.5) g/dL Albumin/Globulin Ratio (1.3-2.8) Amylase (25-115) U/L Lipase (73-393) U/L Result Diagrams: 11/08/17 05:02 11/08/17 05:02 Problem List Initiated/Reviewed/Updated: Yes Orders Last 24hrs: Active Orders 24 hr Category Date Time Status Patient Status [ADT] Stat ADT 11/07/17 11:23 Active EKG Documentation Completion [RC] STAT Care 11/07/17 09:30 Active Notify Provider Consults [RC] ASDIRECTED Care 11/07/17 11:25 Active Oxygen Therapy [RC] PRN Care 11/07/17 13:15 Ordered Pulse Oximetry [RC] ASDIRECTED Care 11/07/17 09:30 Active Up ad Jazmine [RC] ASDIRECTED Care 11/07/17 13:15 Ordered VTE/DVT Education [RC] PER UNIT ROUTINE Care 11/07/17 13:15 Ordered Vital Signs [RC] Q4H Care 11/07/17 13:15 Ordered Consult to Physician [CONS] Stat Cons 11/07/17 11:25 Active Abdomen Ltd [US] Stat Exams 11/07/17 13:13 Ordered Abdomen Pelvis wo Cont [CT] Stat Exams 11/07/17 09:31 Taken Chest 1V Frontal [CR] Stat Exams 11/07/17 09:31 Taken Chest wo Cont [CT] Stat Exams 11/07/17 13:14 Ordered CBC WITH AUTO DIFF [HEME] AM Lab 11/08/17 05:11 Ordered CBC WITH AUTO DIFF [HEME] AM Lab 11/09/17 05:11 Ordered CBC WITH AUTO DIFF [HEME] AM Lab 11/10/17 05:11 Ordered COMPREHENSIVE METABOLIC PN,CMP [CHEM] AM Lab 11/08/17 05:11 Ordered COMPREHENSIVE METABOLIC PN,CMP [CHEM] AM Lab 11/09/17 05:11 Ordered COMPREHENSIVE METABOLIC PN,CMP [CHEM] AM Lab 11/10/17 05:11 Ordered CULTURE BLOOD [BC] Stat Lab 11/07/17 09:47 Received CULTURE BLOOD [BC] Stat Lab 11/07/17 10:45 Received CULTURE URINE [RM] Stat Lab 11/07/17 09:31 Ordered UA W/O MICROSCOPIC [URIN] Stat Lab 11/07/17 09:31 Ordered Heparin Sodium Med 11/07/17 13:15 Ordered 5,000 units SUBCUT Q8H Morphine Med 11/07/17 13:15 Ordered 2 mg IVPUSH Q2H PRN Ondansetron [Zofran] Med 11/07/17 13:15 Ordered 4 mg IVPUSH Q4H PRN Piperacillin/Tazobactam [Piperacil-Tazobact] 3.375 gm Med 11/07/17 17:00 Ordered Sodium Chloride 0.9% [Normal Saline] 50 ml IV Q6H Sodium Chloride 0.9% @ 125 MLS/HR (1000ml) Med 11/07/17 13:15 Ordered Sodium Chloride 0.9% [Normal Saline] 1,000 ml IV ASDIRECTED Sodium Chloride 0.9% [Saline Flush] Med 11/07/17 09:31 Active 10 ml FLUSH ASDIRECTED PRN Sodium Chloride 0.9% [Saline Flush] Med 11/07/17 09:31 Active 2.5 ml FLUSH ASDIRECTED PRN Vancomycin Pharmacy to Dose [Pharmacy to Dose - Med 11/07/17 13:15 Ordered Vancomycin] 1 dose .XX ASDIRECTED fentaNYL [Duragesic] Med 11/07/17 13:15 Ordered 50 mcg TRDERM Q72H Blood Culture x2 Reflex Set [OM.PC] Stat Oth 11/07/17 09:31 Ordered Saline Lock Insert [OM.PC] Stat Oth 11/07/17 09:30 Ordered Sequential Compression Device [OM.PC] Per Unit Routine Oth 11/07/17 13:15 Ordered Resuscitation Status Routine Resus Stat 11/07/17 13:15 Ordered Medication Orders Fentanyl (Duragesic) 50 mcg TRDERM Q72H BECCA Piperacillin Sod/Tazobactam (Sod 3.375 gm/ Sodium Chloride) 50 mls @ 100 mls/ hr IV Q6H BECCA Sodium Chloride (Saline Flush) 10 ml FLUSH ASDIRECTED PRN PRN Reason: Keep Vein Open Sodium Chloride (Saline Flush) 2.5 ml FLUSH ASDIRECTED PRN PRN Reason: Keep Vein Open Vancomycin HCl (Pharmacy To Dose - Vancomycin) 1 dose .XX ASDIRECTED BECCA Assessment/Plan Comment:: 82 yo male admitted with abdominal pain, leukocytosis and free air on CT scan of abdomen. Dr. Erazo has been consulted and feels free air is likely post surgical and not perforation as patient has no peritoneal signs. Leukocytosis difficult to interpret in setting of neulasta and chemotherapy. We will cover empirically with Vancomycin and Zosyn, while obtain cultures from port and urine. Will check CT chest and RUQ ultrasound.
[2017-11-07] MEDS ORDERED: Morphine 2 MG/ML Syringe IV PRN (15:20)
[2017-11-07] MEDS: Sodium Chloride 0.9% 1,000 ML IV SCH ×2 (15:32→22:35)
[2017-11-07] MEDS: Piperacillin/Tazobactam 3.375 GM in Sodium Chloride 0.9% 50 ML IV SCH ×2 (16:11→23:53)
[2017-11-07] MEDS ORDERED: Promethazine 25 MG/ML SDV IM PRN (17:27)
--- NOTE | 2017-11-07 18:05 | PCM.SN ---
- Free Text/Narrative Note: pt seen, chart reviewed; Pt remarked the abd pain was gradually increased after the surgery Tuesday. there is not a point of sudden increase in abd pain; and presently he felt much better; peg has been used, there is no association of peg tube with abd pain; pt is on fentanyl patch; npo, only ice chips; do not use peg tube. start iv abx, repeat blood work, ct a/p w po/iv contrast, using gastrograffin only, no barium; hold off heparin for plt of 98
[2017-11-08] MEDS: Piperacillin/Tazobactam 3.375 GM in Sodium Chloride 0.9% 50 ML IV SCH ×4 (05:20→22:42)
[2017-11-08 05:35] LABS: CHLORIDE,CL 105 mmol/L (98-107); SODIUM,NA 138 mmol/L (136-148)
[2017-11-08] MEDS: Sodium Chloride 0.9% 1,000 ML IV SCH ×2 (07:44→16:09)
--- NOTE | 2017-11-08 08:44 | PCM.PN ---
- General Info Date of Service: 11/08/17 Subjective Update: The patient is a 82 year old male who presented with increasing abdominal pain with free air seen on CT. He had a G-Tube placed Tuesday11/04/17 and has had the pain since. This morning he states the pain is better, but still has more pain with movement. He was seen by Dr. Erazo yesterday who thought that the free air was from the tube placement, not perforation, but recommended CT ab/pelvis with IV/PO contrast. The patient has been NPO with only ice chips. He denies chest pain or shortness of breath. 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 - Review of Systems General: Denies: Fever Pulmonary: Reports: No Symptoms Cardiovascular: Reports: No Symptoms Gastrointestinal: Reports: Abdominal Pain, Nausea, Vomiting Skin: Reports: No Symptoms Neurological: Reports: No Symptoms Psychiatric: Reports: No Symptoms - Patient Data Vitals - Most Recent: Last Vital Signs Temp 97.9 F 11/08/17 04:00 Pulse 69 11/08/17 07:00 Resp 13 11/08/17 07:00 BP 105/52 L 11/08/17 07:00 Pulse Ox 95 11/08/17 07:00 Weight - Most Recent: 68.5 kg I&O - Last 24 Hours: Intake & Output 11/07/17 11/08/17 11/08/17 22:59 06:59 14:59 Intake Total 1270 642 Output Total 710 375 Balance 560 267 Lab Results Last 24 Hours: Laboratory Results - last 24 hr 11/07/17 11/07/17 11/07/17 Range/Units 09:47 09:47 09:47 WBC 23.13 H (4.0-11.0) K/uL RBC 3.99 L (4.50-5.90) M/uL Hgb 12.4 L (13.0-17.0) g/dL Hct 36.3 L (38.0-50.0) % MCV 91.0 (80.0-98.0) fL MCH 31.1 (27.0-32.0) pg MCHC 34.2 (31.0-37.0) g/dL RDW Std Deviation 55.0 (28.0-62.0) fl RDW Coeff of Stefani 17 H (11.0-15.0) % Plt Count 96 L (150-400) K/uL MPV 9.60 (7.40-12.00) fL Add Manual Diff YES Neutrophils % (Manual) 87 H (48.0-80.0) % Band Neutrophils % 9 % Lymphocytes % (Manual) 3 L (16.0-40.0) % Monocytes % (Manual) 1 (0.0-15.0) % Eosinophils % (Manual) (0.0-7.0) % Nucleated RBC % 0.0 /100WBC Absolute Seg Neuts 20.1 H (1.4-5.7) Band Neutrophils # 2.1 Lymphocytes # (Manual) 0.7 (0.6-2.4) Monocytes # (Manual) 0.2 (0.0-0.8) Eosinophils # (Manual) (0.0-0.7) Nucleated RBCs # 0 K/uL INR 1.10 Lactate (0.20-2.00) mmol/L Sodium 138 (136-148) mmol/L Potassium 4.0 (3.5-5.1) mmol/L Chloride 100 (98-107) mmol/L Carbon Dioxide 29.9 (21.0-32.0) mmol/L BUN 10 (7.0-18.0) mg/dL Creatinine 0.8 (0.8-1.3) mg/dL Est Cr Clr Drug Dosing TNP Estimated GFR (MDRD) > 60.0 ml/min Glucose 122 H (74-106) mg/dL Calcium 8.8 (8.5-10.1) mg/dL Total Bilirubin 1.0 (0.2-1.0) mg/dL AST 31 (15-37) IU/L ALT 24 (14-63) IU/L Alkaline Phosphatase 100 (46-116) U/L Total Protein 6.8 (6.4-8.2) g/dL Albumin 3.2 L (3.4-5.0) g/dL Globulin 3.6 H (2.0-3.5) g/dL Albumin/Globulin Ratio 0.9 L (1.3-2.8) Amylase 21 L (25-115) U/L Lipase 60 L (73-393) U/L Urine Color Urine Appearance Urine pH (5.0-8.0) Ur Specific [place] (1.001-1.035) Urine Protein (NEGATIVE) mg/dL Urine Glucose (UA) (NEGATIVE) mg/dL Urine Ketones (NEGATIVE) mg/dL Urine Occult Blood (NEGATIVE) Urine Nitrite (NEGATIVE) Urine Bilirubin (NEGATIVE) Urine Urobilinogen (<2.0) EU/dL Ur Leukocyte Esterase (NEGATIVE) 11/07/17 11/07/17 11/08/17 Range/Units 09:50 17:20 05:02 WBC 10.22 (4.0-11.0) K/uL RBC 3.17 L (4.50-5.90) M/uL Hgb 9.8 L (13.0-17.0) g/dL Hct 28.9 L (38.0-50.0) % MCV 91.2 (80.0-98.0) fL MCH 30.9 (27.0-32.0) pg MCHC 33.9 (31.0-37.0) g/dL RDW Std Deviation 54.9 (28.0-62.0) fl RDW Coeff of Stefani 17 H (11.0-15.0) % Plt Count 69 L (150-400) K/uL MPV 10.20 (7.40-12.00) fL Add Manual Diff YES Neutrophils % (Manual) 74 (48.0-80.0) % Band Neutrophils % 13 % Lymphocytes % (Manual) 10 L (16.0-40.0) % Monocytes % (Manual) 2 (0.0-15.0) % Eosinophils % (Manual) 1 (0.0-7.0) % Nucleated RBC % 0.0 /100WBC Absolute Seg Neuts 7.6 H (1.4-5.7) Band Neutrophils # 1.3 Lymphocytes # (Manual) 1.0 (0.6-2.4) Monocytes # (Manual) 0.2 (0.0-0.8) Eosinophils # (Manual) 0.1 (0.0-0.7) Nucleated RBCs # 0 K/uL INR Lactate 1.4 (0.20-2.00) mmol/L Sodium (136-148) mmol/L Potassium (3.5-5.1) mmol/L Chloride (98-107) mmol/L Carbon Dioxide (21.0-32.0) mmol/L BUN (7.0-18.0) mg/dL Creatinine (0.8-1.3) mg/dL Est Cr Clr Drug Dosing Estimated GFR (MDRD) ml/min Glucose (74-106) mg/dL Calcium (8.5-10.1) mg/dL Total Bilirubin (0.2-1.0) mg/dL AST (15-37) IU/L ALT (14-63) IU/L Alkaline Phosphatase (46-116) U/L Total Protein (6.4-8.2) g/dL Albumin (3.4-5.0) g/dL Globulin (2.0-3.5) g/dL Albumin/Globulin Ratio (1.3-2.8) Amylase (25-115) U/L Lipase (73-393) U/L Urine Color YELLOW Urine Appearance CLEAR Urine pH 7.0 (5.0-8.0) Ur Specific [place] 1.020 (1.001-1.035) Urine Protein NEGATIVE (NEGATIVE) mg/dL Urine Glucose (UA) 100 H (NEGATIVE) mg/dL Urine Ketones TRACE H (NEGATIVE) mg/dL Urine Occult Blood NEGATIVE (NEGATIVE) Urine Nitrite NEGATIVE (NEGATIVE) Urine Bilirubin NEGATIVE (NEGATIVE) Urine Urobilinogen 0.2 (<2.0) EU/dL Ur Leukocyte Esterase NEGATIVE (NEGATIVE) 11/08/17 Range/Units 05:02 WBC (4.0-11.0) K/uL RBC (4.50-5.90) M/uL Hgb (13.0-17.0) g/dL Hct (38.0-50.0) % MCV (80.0-98.0) fL MCH (27.0-32.0) pg MCHC (31.0-37.0) g/dL RDW Std Deviation (28.0-62.0) fl RDW Coeff of Stefani (11.0-15.0) % Plt Count (150-400) K/uL MPV (7.40-12.00) fL Add Manual Diff Neutrophils % (Manual) (48.0-80.0) % Band Neutrophils % % Lymphocytes % (Manual) (16.0-40.0) % Monocytes % (Manual) (0.0-15.0) % Eosinophils % (Manual) (0.0-7.0) % Nucleated RBC % /100WBC Absolute Seg Neuts (1.4-5.7) Band Neutrophils # Lymphocytes # (Manual) (0.6-2.4) Monocytes # (Manual) (0.0-0.8) Eosinophils # (Manual) (0.0-0.7) Nucleated RBCs # K/uL INR Lactate (0.20-2.00) mmol/L Sodium 138 (136-148) mmol/L Potassium 3.5 (3.5-5.1) mmol/L Chloride 105 (98-107) mmol/L Carbon Dioxide 28.5 (21.0-32.0) mmol/L BUN 8 (7.0-18.0) mg/dL Creatinine 0.7 L (0.8-1.3) mg/dL Est Cr Clr Drug Dosing 77.36 Estimated GFR (MDRD) > 60.0 ml/min Glucose 84 (74-106) mg/dL Calcium 7.7 L (8.5-10.1) mg/dL Total Bilirubin 1.0 (0.2-1.0) mg/dL AST 24 (15-37) IU/L ALT 18 (14-63) IU/L Alkaline Phosphatase 72 (46-116) U/L Total Protein 5.0 L (6.4-8.2) g/dL Albumin 2.3 L (3.4-5.0) g/dL Globulin 2.7 (2.0-3.5) g/dL Albumin/Globulin Ratio 0.9 L (1.3-2.8) Amylase (25-115) U/L Lipase (73-393) U/L Urine Color Urine Appearance Urine pH (5.0-8.0) Ur Specific [place] (1.001-1.035) Urine Protein (NEGATIVE) mg/dL Urine Glucose (UA) (NEGATIVE) mg/dL Urine Ketones (NEGATIVE) mg/dL Urine Occult Blood (NEGATIVE) Urine Nitrite (NEGATIVE) Urine Bilirubin (NEGATIVE) Urine Urobilinogen (<2.0) EU/dL Ur Leukocyte Esterase (NEGATIVE) Med Orders - Current: Current Medications Fentanyl (Duragesic) 50 mcg TRDERM Q72H [facility] Last Admin: 11/07/17 15:01 Dose: 50 mcg Piperacillin Sod/Tazobactam (Sod 3.375 gm/ Sodium Chloride) 50 mls @ 100 mls/ hr IV Q6H [facility] Last Admin: 11/08/17 05:20 Dose: 100 mls/hr Vancomycin HCl 1 gm/ Sodium (Chloride) 250 mls @ 250 mls/hr IV Q12H [facility] Last Admin: 11/07/17 22:34 Dose: 250 mls/hr Sodium Chloride (Normal Saline) 1,000 mls @ 125 mls/hr IV ASDIRECTED [facility] Last Admin: 11/08/17 07:44 Dose: 125 mls/hr Morphine Sulfate (Morphine) 2 mg IV Q2H PRN PRN Reason: Pain (severe 7-10) Last Admin: 11/07/17 15:26 Dose: 2 mg Ondansetron HCl (Zofran) 4 mg IVPUSH Q4H PRN PRN Reason: Nausea Last Admin: 11/07/17 16:07 Dose: 4 mg Promethazine HCl (Phenergan) 25 mg IM Q6H PRN PRN Reason: Nausea/Vomiting Last Admin: 11/07/17 20:16 Dose: 25 mg Sodium Chloride (Saline Flush) 10 ml FLUSH ASDIRECTED PRN PRN Reason: Keep Vein Open Sodium Chloride (Saline Flush) 2.5 ml FLUSH ASDIRECTED PRN PRN Reason: Keep Vein Open Vancomycin HCl (Pharmacy To Dose - Vancomycin) 1 dose .XX ASDIRECTED [facility] Discontinued Medications Fentanyl (Sublimaze) 50 mcg IVPUSH ONETIME ONE Stop: 11/07/17 09:32 Last Admin: 11/07/17 10:52 Dose: 50 mcg Heparin Sodium (Porcine) (Heparin Sodium) 5,000 units SUBCUT Q8H [facility] Last Admin: 11/07/17 20:00 Dose: Not Given Sodium Chloride (Normal Saline) 1,000 mls @ 999 mls/hr IV STAT ONE Stop: 11/07/17 10:31 Last Admin: 11/07/17 09:30 Dose: 999 mls/hr Piperacillin Sod/Tazobactam (Sod 3.375 gm/ Sodium Chloride) 50 mls @ 100 mls/ hr IV ONETIME ONE Stop: 11/07/17 11:18 Last Admin: 11/07/17 11:28 Dose: 100 mls/hr Vancomycin HCl 1 gm/ Sodium (Chloride) 250 mls @ 166 mls/hr IV ONETIME ONE Stop: 11/07/17 12:42 Last Admin: 11/07/17 12:40 Dose: 166 mls/hr Morphine Sulfate (Morphine) 2 mg IVPUSH Q2H PRN PRN Reason: Pain (severe 7-10) Stop: 11/08/17 13:16 Ondansetron HCl (Zofran) 4 mg IVPUSH ONETIME ONE Stop: 11/07/17 09:32 Last Admin: 11/07/17 10:52 Dose: 4 mg - Exam General: Alert, Oriented, Other (Non verbal- uses board to communicate) Lungs: Wheezing Cardiovascular: Regular Rate, Regular Rhythm GI/Abdominal Exam: Normal Bowel Sounds, Soft, Tender (lower right and left quadrants) Extremities: No Pedal Edema Skin: Warm, Dry Wound/Incisions: Healing Well (G-tube) Psy/Mental Status: Alert - Problem List Review Problem List Initiated/Reviewed/Updated: Yes - Plan Plan:: 1. Abdominal pain with free air s/p G-tube placement- Patient is feeling better. Dr. Erazo was consulted, recommended CT ab/pelvis with IV/PO contrast. That is scheduled for this morning. Dr. Erazo is transfering care to Dr. Rodriguez. Pain control with fentaynl patch, morphine makes him sick. Continue NPO with only ice chips. We will appreciate any additional recommendations from general surgeryl. 2. Leukocytosis- resolved. Urine culture, blood cultures, and port culture still pending. Continue Vancomycin and Zosyn for now. 3. Thrombocytopenia- likely related to chemotherapy- worsening likely due to dilution from IV fluids- continue to monitor
--- NOTE | 2017-11-08 09:05 | CR ---
EXAM DATE: 11/07/17 PATIENT'S AGE: 82 Patient: GENA DIEGO Facility: [place], [place] Site . Site : 1935 Study: XRay Chest [id number]/3/2018 10:24:53 AM Ordering Physician: Wilda Loyola Final Report: INDICATION: Shortness of breath TECHNIQUE: Two view chest. Comparison chest x-ray 10/30/2017. FINDINGS: Stable cardiac mediastinal silhouette. Right Port-A-Cath. Lungs are clear of acute airspace or interstitial process. Curvilinear lucencies above the liver worrisome for possible free air versus distended air-filled loops of bowel. IMPRESSION: Curvilinear lucencies above the liver worrisome for possible free air versus distended air-filled loops of bowel. Consider abdominal pelvic CT scan to further assess. Dictated by Zoraida Wagner MD @ Nov 07 2017 10:39AM (Electronic Signature) Report Signed by Proxy. IDRIS
--- NOTE | 2017-11-08 09:06 | CT ---
EXAM DATE: 11/07/17 PATIENT'S AGE: 82 Patient: GENA DIEGO Facility: [place], [place] Site . Site : 1935 Study: CT Abdomen/Pelvis WO CONT [id number]/3/2018 10:26:27 AM Ordering Physician: Wilda Loyola Final Report: Indication: Pain. Patient states chemo on had PEG tube placed on Tuesday. Abdominal pain and bloating. Technique: Comparison: CT and pelvis 10/30/2017. Findings: Heart size normal. No pericardial or pleural effusion. Basilar strandy atelectasis. Irregular margin and opacity right lower lobe measuring 1.8 centimeters again seen on series 3, image 18. 4 millimeter right lower lobe pulmonary nodule on image 2. Fusiform infrarenal abdominal aortic aneurysm with extensive mural thrombus and atherosclerotic calcified plaque. Aneurysm measures 4 x 4.4 cm, unchanged. Right common iliac artery measures 1.8 cm. Left common iliac artery measures 1.6 cm. Unenhanced liver demonstrates small cyst. Slight increased attenuation within the gallbladder could be related to sludge. Pancreas adrenal glands spleen is unremarkable. Unenhanced kidneys are unremarkable. Vascular calcifications possible small nonobstructing stones. No hydronephrosis. TURP defect prostate gland. Urinary bladder is slightly distended without inflammatory change. Diverticulosis. Slight air distended colon. No obstruction. No obvious areas of bowel wall thickening or inflammatory change seen. Percutaneous gastrostomy tube appears in good position. There is a large amount of free intraperitoneal air most significant in the anterior abdomen at the level of the gastrostomy tube. This is more than expected for this procedure. There is a small amount of free fluid in the abdomen and pelvis. No suspicious bony lesions. Impression: 1. Percutaneous gastrostomy tube is in satisfactory position however there is a large amount of free intraperitoneal air which is more than expected primarily at the level of the gastrostomy tube in the anterior abdomen. Consider possible leak around the gastrostomy tube less likely viscus perforation without obvious site identified. Small amount of free fluid in the abdomen or pelvis. 2. Slight increased attenuation gallbladder could be related to sludge. 3. Infrarenal abdominal aortic aneurysm measuring 4.4 x 4 cm. Dilatation of the common iliac arteries. 4. Irregular marginated right lower lobe opacity with measuring 1.8 centimeters. Recommend dedicated chest CT. Please note that all CT scans at this facility use dose modulation, iterative reconstruction, and/or weight-based dosing when appropriate to reduce radiation dose to as low as reasonably achievable. Dictated by Zoraida Wagner MD @ Nov 07 2017 10:43AM (Electronic Signature) Report Signed by Proxy. MTDD
--- NOTE | 2017-11-08 09:09 | PCM.SN ---
- Free Text/Narrative Note: please switch consult to Dr. Rodriguez
[2017-11-08] MEDS ORDERED: Iopamidol 755 MG/ML 500 ML Multipack Bottle IVPUSH STA (09:10)
--- NOTE | 2017-11-08 09:31 | CT ---
EXAM DATE: 11/07/17 PATIENT'S AGE: 82 Patient: GENA DIEGO Facility: [place], [place] Site . Site : 1935 Study: CT Chest WO CONT [id number]/3/2018 1:40:04 PM Ordering Physician: Wilda Loyola Final Report: INDICATION: Leukocytosis, head and neck cancer metastasis TECHNIQUE: CT chest without i.v. contrast. Coronal and sagittal reformats were obtained. CONTRAST: None COMPARISON: None FINDINGS: Cardiovascular: Mild anemia is present with the cardiac chambers appearing lucent with respect to the myocardium. Moderate enlargement of the main pulmonary artery is present and measures 3.5 cm in maximal short axis. No sign of aneurysm seen in the thoracic aorta. The presence of aortic dissection cannot be evaluated without the use of intravenous contrast. Severe atherosclerotic calcifications are noted in the coronary arteries. Mediastinum: No mass or adenopathy seen. Lung: Consolidation and volume loss is present within the lingula and left lung base which likely due to atelectasis. Mucous plugging in the posterior basal segment of the right lower lobe noted. Moderate diffuse centrilobular emphysema is present. There is a 5 mm calcified granuloma present in the right lower lobe. Pleura and pericardium: Small left pleural effusion is present with pleural thickening and is heterogeneous in appearance. No significant pericardial effusion is present. Chest wall and axilla: No mass or adenopathy seen. Bone: Unremarkable for age. Upper abdomen: Unremarkable. Pneumoperitoneum and abdominal findings are present and discussed on CT abdominal report. IMPRESSIONS: 1. Moderate enlargement of the main pulmonary artery is present and measures 3.5 cm in maximal short axis. This is likely due to pulmonary hypertension. 2. Severe atherosclerotic calcifications are noted in the coronary arteries. 3. Small left pleural effusion is present with pleural thickening and is heterogeneous in appearance. Findings may be due to a small exudative type effusion. Dictated by Crow Morejon MD @ 11/07/2017 2:07:43 PM Please note that all CT scans at this facility use dose modulation, iterative reconstruction, and/or weight-based dosing when appropriate to reduce radiation dose to as low as reasonably achievable. Dictated by: Crow Morejon MD @ 11/07/2017 14:07:48 (Electronic Signature) Report Signed by Proxy. MTDD
--- NOTE | 2017-11-08 09:33 | US ---
EXAM DATE: 11/07/17 PATIENT'S AGE: 82 Patient: GENA DIEGO Facility: [place], [place] Site . Site : 1935 Study: US Abdomen [id number]/3/2018 2:00:29 PM Ordering Physician: Ethan Zuniga Final Report: INDICATION: Abdominal pain and bloating TECHNIQUE: Ultrasound abdomen limited. Sonographic images of the right upper quadrant were obtained using shelton-scale and color Doppler images. COMPARISON: None FINDINGS: Moderate degradation of image quality noted due to body habitus and large amount of bowel gas. Liver: The liver parenchyma is normal in echotexture. Gallbladder: The neck of the gallbladder is not well demonstrated. The gallbladder wall is normal in appearance. No pericholecystic fluid is present. No sonographic [place] sign is present. Common bile duct: Obscured by gas and cannot be visualized. No intrahepatic biliary ductal dilatation seen. Pancreas: The pancreas is obscured by bowel gas. Right Kidney: 10.6 cm. No hydronephrosis or ureterectasis is seen. Vascular: The IVC and aorta are obscured by bowel gas. The visualized portal vein is patent with normal anterograde flow. Miscellaneous: Trace ascites is noted. IMPRESSION: 1. Study extremely limited by overlying bowel gas. 2. Trace ascites is noted. Dictated by Crow Morejon MD @ 11/07/2017 2:20:37 PM Dictated by: Crow Morejon MD @ 11/07/2017 14:20:43 (Electronic Signature) Report Signed by Proxy. IDRIS
--- NOTE | 2017-11-08 10:21 | CONS ---
DATE OF CONSULTATION: 11/07/2017 DATE OF : 1935 PRIMARY CARE PHYSICIAN: None PCP CONCERNING QUESTION: Abdominal pain and free air. HISTORY OF PRESENT ILLNESS: The patient is an 82-year-old gentleman and carries a diagnosis of recurrent laryngeal cancer. The patient has resection in the past and radiation in the throat area and recently, he got gastrostomy feeding tube placement and he is postop day #3. He has open G-tube placement. The patient remarked that right after surgery when he went home, his pain level is about 5. He is on fentanyl patch for pain and over the cause, the pain slightly increased all the way to the 8 when he came to the emergency room and the G-tube has been used for sometime. Right now, in the emergency room, his pain level is 6; so right after postop it was 5, right now it is 6. The patient also does not have a stool formation after the surgery, and in the emergency room, the patient remarked feeling slightly better. PAST SURGICAL HISTORY: Laryngeal resection and feeding gastrostomy tube placement. PAST MEDICAL HISTORY: Denied diabetes, HI, CVA, hypertension. Carries a diagnosis of recurrent laryngeal cancer. ALLERGIES: Please refer to nursing notes for details. MEDICATIONS: Please refer to nursing notes for details. FAMILY HISTORY: Noncontributory. SOCIAL HISTORY: Former smoker all the way to 4 years ago. Patient quit smoking. Denied alcohol use. PHYSICAL EXAMINATION: GENERAL: A very pleasant, nice gentleman, smiled to the doctor, in no acute distress. HEENT: Normocephalic and atraumatic. Sclerae anicteric. LUNGS: Clear to auscultation. HEART: Regular rate and rhythm. ABDOMEN: Soft, nondistended, and localized tenderness on the right lower quadrant. No rebound tenderness. No peritoneal signs. LABORATORY DATA: White count 23. CAT scan of G-tube is in good position. No bowel wall thickening. Large amount of free air, more than from similar type of procedure. IMPRESSION: The patient with very elevated white count, leukocytosis with free air; however, is not peritoneal. The patient is 3 days from surgery. Possible perforated viscus more likely is probably postop change. We will stop using G-tube for the time being, and give IV antibiotic and we will order CAT scan. We will repeat CAT scan through the G-tube contrast using gastrografin only and we will follow the patient. ELIZABETH TOBAR /[id number]
--- NOTE | 2017-11-08 10:43 | CT ---
CT of the abdomen and pelvis with contrast. HISTORY: Recent PEG tube placement TECHNIQUE: Axial CT images were obtained of the abdomen and pelvis following administration of 85 mL of Isovue-370 without complication. Coronal and sagittal reconstructions obtained. FINDINGS: Atelectasis is noted within the lung bases. There is a tiny 3 mm nodule within the right lower lobe. Tiny cyst within the left hepatic lobe. The spleen, adrenal glands, and pancreas appear normal. Trace abdominal ascites. The gallbladder is normal. There is a gastric tube noted the tip in the stomach. No extravasation of oral contrast. The kidneys enhance and function symmetrically without evidence of obstructive uropathy. The large and small bowel are normal in caliber without evidence of obstruction. Moderate diverticulo sis without evidence of diverticulitis. Urinary bladder is notably distended. Aneurysmal dilatation o f the infrarenal abdominal aorta is noted measuring up to 3.8 cm. Small to moderate amount of free ai r is noted within the abdomen. Degenerative changes noted within the lumbar spine. Mild generalized osteopenia. IMPRESSION: 1. Small amount of free abdominal air. 2. Gastric tube noted with tip in the stomach. 3. Small amount of abdominal ascites. 4. Diverticulosis without evidence of diverticulitis. 5. Notable distention of the urinary bladder, correlate for bladder outlet obstruction. 6. Prominent arteriovascular calcifications and a 3.8 cm infrarenal abdominal aortic aneurysm. 7. Bibasilar atelectasis.
--- NOTE | 2017-11-08 18:00 | PCM.SN ---
- Free Text/Narrative Note: Patient has had a good day. Denies abdominal pain. Radiologic studies reviewed with Dr. Chester. Gastrostomy tube in appropriate position. Amount of air seen he feels is consistent with an open gastrostomy placement. EXAMINATION: Abdomen is soft and nontender. Good bowel sounds. Incision clean and dry. RECOMMENDATIONS: Full liquid to soft diet as tolerated. Supplement with tube feedings to supply about 1000 naveen/day. As disease progresses patient may require more supplementation. Can be transitioned to Med/Surg.
--- NOTE | 2017-11-08 18:40 | PCM.SN ---
- Free Text/Narrative Note: update 10/08/2017 6 pm After speaking with Dr. Rodriguez this afternoon, Dr. Rodriguez felt that the patient is improving quite significantly, the free air was anticipated as he did have to do an open procedure as part of the G-tube which does calm with the mild complication of mild free air in the abdomen, Dr. Rodriguez did have a discussion with Dr. Turner in radiology and both agree that there is no free air secondary to a perforation. Dr. Rodriguez would like for the patient to have his G-tube feedings started. The goal of G-tube feedings is for the patient to receive 6171-0467 naveen per day. Dietitian consult as well as PT consult has been placed as Dr. Rodriguez does believe that the patient should be stable enough to be discharged tomorrow.
[2017-11-09] MEDS: Sodium Chloride 0.9% 1,000 ML IV SCH (01:59)
[2017-11-09] MEDS: Piperacillin/Tazobactam 3.375 GM in Sodium Chloride 0.9% 50 ML IV SCH (04:09)
[2017-11-09 06:06] LABS: CHLORIDE,CL 105 mmol/L (98-107); SODIUM,NA 138 mmol/L (136-148)
--- NOTE | 2017-11-09 08:39 | PCM.PN ---
- General Info Date of Service: 11/09/17 - Patient Data Vitals - Most Recent: Last Vital Signs Temp 96.9 F 11/09/17 08:00 Pulse 76 11/09/17 04:00 Resp 20 11/09/17 08:00 BP 154/72 H 11/09/17 08:00 Pulse Ox 98 11/09/17 08:00 Weight - Most Recent: 71.2 kg I&O - Last 24 Hours: Intake & Output 11/08/17 11/09/17 11/09/17 22:59 06:59 14:59 Intake Total 1705 1375 240 Output Total 1000 200 Balance 705 1175 240 Lab Results Last 24 Hours: Laboratory Results - last 24 hr 11/09/17 11/09/17 Range/Units 05:28 05:28 WBC 3.83 L (4.0-11.0) K/uL RBC 3.02 L (4.50-5.90) M/uL Hgb 9.2 L (13.0-17.0) g/dL Hct 27.4 L (38.0-50.0) % MCV 90.7 (80.0-98.0) fL MCH 30.5 (27.0-32.0) pg MCHC 33.6 (31.0-37.0) g/dL RDW Std Deviation 55.8 (28.0-62.0) fl RDW Coeff of Stefani 17 H (11.0-15.0) % Plt Count 57 L (150-400) K/uL MPV 10.40 (7.40-12.00) fL Add Manual Diff YES Neutrophils % (Manual) 66 (48.0-80.0) % Band Neutrophils % 7 % Lymphocytes % (Manual) 17 (16.0-40.0) % Monocytes % (Manual) 1 (0.0-15.0) % Eosinophils % (Manual) 7 (0.0-7.0) % Basophils % (Manual) 2 H (0.0-1.5) % Nucleated RBC % 0.0 /100WBC Absolute Seg Neuts 2.5 (1.4-5.7) Band Neutrophils # 0.3 Lymphocytes # (Manual) 0.7 (0.6-2.4) Monocytes # (Manual) 0.0 (0.0-0.8) Eosinophils # (Manual) 0.3 (0.0-0.7) Basophils # (Manual) 0.1 (0.0-0.1) Nucleated RBCs # 0 K/uL Sodium 138 (136-148) mmol/L Potassium 3.4 L (3.5-5.1) mmol/L Chloride 105 (98-107) mmol/L Carbon Dioxide 29.4 (21.0-32.0) mmol/L BUN 7 (7.0-18.0) mg/dL Creatinine 0.7 L (0.8-1.3) mg/dL Est Cr Clr Drug Dosing 77.36 mL/min Estimated GFR (MDRD) > 60.0 ml/min Glucose 80 (74-106) mg/dL Calcium 7.9 L (8.5-10.1) mg/dL Total Bilirubin 0.7 (0.2-1.0) mg/dL AST 19 (15-37) IU/L ALT 19 (14-63) IU/L Alkaline Phosphatase 66 (46-116) U/L Total Protein 4.9 L (6.4-8.2) g/dL Albumin 2.2 L (3.4-5.0) g/dL Globulin 2.7 (2.0-3.5) g/dL Albumin/Globulin Ratio 0.8 L (1.3-2.8) Hima Results Last 24 Hours: Microbiology 11/07/17 10:45 Aerobic Blood Culture - Preliminary Blood - Venous - Lab Draw NO GROWTH AFTER 1 DAY Anaerobic Blood Culture - Preliminary NO GROWTH AFTER 1 DAY 11/07/17 09:47 Aerobic Blood Culture - Preliminary Blood - Venous NO GROWTH AFTER 1 DAY Anaerobic Blood Culture - Preliminary NO GROWTH AFTER 1 DAY Med Orders - Current: Current Medications Fentanyl (Duragesic) 50 mcg TRDERM Q72H [facility] Last Admin: 11/07/17 15:01 Dose: 50 mcg Piperacillin Sod/Tazobactam (Sod 3.375 gm/ Sodium Chloride) 50 mls @ 100 mls/ hr IV Q6H [facility] Last Admin: 11/09/17 04:09 Dose: 100 mls/hr Vancomycin HCl 1 gm/ Sodium (Chloride) 250 mls @ 250 mls/hr IV Q12H [facility] Last Admin: 11/08/17 21:02 Dose: 250 mls/hr Sodium Chloride (Normal Saline) 1,000 mls @ 125 mls/hr IV ASDIRECTED [facility] Last Admin: 11/09/17 01:59 Dose: 125 mls/hr Ondansetron HCl (Zofran) 4 mg IVPUSH Q4H PRN PRN Reason: Nausea Last Admin: 11/07/17 16:07 Dose: 4 mg Promethazine HCl (Phenergan) 25 mg IM Q6H PRN PRN Reason: Nausea/Vomiting Last Admin: 11/07/17 20:16 Dose: 25 mg Sodium Chloride (Saline Flush) 10 ml FLUSH ASDIRECTED PRN PRN Reason: Keep Vein Open Sodium Chloride (Saline Flush) 2.5 ml FLUSH ASDIRECTED PRN PRN Reason: Keep Vein Open Vancomycin HCl (Pharmacy To Dose - Vancomycin) 1 dose .XX ASDIRECTED [facility] Discontinued Medications Fentanyl (Sublimaze) 50 mcg IVPUSH ONETIME ONE Stop: 11/07/17 09:32 Last Admin: 11/07/17 10:52 Dose: 50 mcg Heparin Sodium (Porcine) (Heparin Sodium) 5,000 units SUBCUT Q8H [facility] Last Admin: 11/07/17 20:00 Dose: Not Given Sodium Chloride (Normal Saline) 1,000 mls @ 999 mls/hr IV STAT ONE Stop: 11/07/17 10:31 Last Admin: 11/07/17 09:30 Dose: 999 mls/hr Piperacillin Sod/Tazobactam (Sod 3.375 gm/ Sodium Chloride) 50 mls @ 100 mls/ hr IV ONETIME ONE Stop: 11/07/17 11:18 Last Admin: 11/07/17 11:28 Dose: 100 mls/hr Vancomycin HCl 1 gm/ Sodium (Chloride) 250 mls @ 166 mls/hr IV ONETIME ONE Stop: 11/07/17 12:42 Last Admin: 11/07/17 12:40 Dose: 166 mls/hr Iopamidol (Isovue Multipack-370 (76%)) 85 ml IVPUSH ONETIME STA Stop: 11/08/17 09:11 Last Admin: 11/08/17 09:11 Dose: 85 ml Morphine Sulfate (Morphine) 2 mg IVPUSH Q2H PRN PRN Reason: Pain (severe 7-10) Stop: 11/08/17 13:16 Morphine Sulfate (Morphine) 2 mg IV Q2H PRN PRN Reason: Pain (severe 7-10) Last Admin: 11/07/17 15:26 Dose: 2 mg Ondansetron HCl (Zofran) 4 mg IVPUSH ONETIME ONE Stop: 11/07/17 09:32 Last Admin: 11/07/17 10:52 Dose: 4 mg - Plan Plan:: 82 yo male admitted with abdominal pain, leukocytosis and free air on CT scan of abdomen. Dr. Erazo has been consulted and feels free air is likely post surgical and not perforation as patient has no peritoneal signs. Leukocytosis difficult to interpret in setting of neulasta and chemotherapy. We will cover empirically with Vancomycin and Zosyn, while obtain cultures from port and urine. Will check CT chest and RUQ ultrasound.
--- NOTE | 2017-11-09 09:09 | PCM.SN ---
- Free Text/Narrative Note: Patient has had a good night. Denies abdominal pain. Having a difficult time swallowing making oral alimentation very difficult. Tolerating gastrostomy supplements. From my standpoint patient may be discharged when cleared by hospitalist team. Will need nutritional supplements via feeding tube to maintain his weight and nutrition. Would ask dietitian for recommendations regarding caloric intact but suspect he will need 6121-7056 kcal/day.
--- NOTE | 2017-11-09 11:26 | PCM.DCSUM1 ---
Discharge Summary - Hospital Course Free Text/Narrative:: Admission Date: 11/07/17 Discharge Date: 11/09/17 Admission Diagnosis: #1 . Abdominal pain with free air #2. Leukocytosis Discharge Diagnosis: #1 . Abdominal pain with free air s/p G-tube placement #2. Leukocytosis- resolved #3. 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 He had a G-tube placed on and then presented on 11/07/17 to the ER with abdominal pain. He had also recently undergone a chemotherapy treatment. In the ER workup included lab work which showed an elevated white count, a normal amylase and normal lipase. A UA with no sign of infection. They got a chest x-ray that showed free air in the abdomen but no cardiopulmonary process. This was followed up with a CT of the abdomen, pelvis, which showed a G-tube in place, large amount of free air, attenuation in the gallbladder, possibly sludge, abdominal aortic aneurysm, and a right lung lobe nodule. The patient was admitted to the medical surgical floor were Dr. Erazo of general surgery was consulted. He did not think this was a perforation and the free air was most likely due to the G-tube placement, but recommended a repeat CT abdomen. The next day, a repeat CT of the abdomen and pelvis did show small amount of free air, the G-tube in place, the abdominal aortic aneurysm and diverticulosis. Once he was admitted and we followed up on the attenuation in the gallbladder with a right upper quadrant ultrasound that was limited due to gas obstruction, but it did see trace ascites. And a CT chest was done to look at the lung nodule and it found enlarged pulmonary arteries consistent with pulmonary hypertension, atherosclerotic calcifications of the coronary arteries and small left sided pleural effusion. The patient was placed nothing by mouth and his diet was advanced as tolerated. The dietitian met with him before leaving and he was started on tube feedings. The patient also was admitted with leukocytosis, which could've been due to recent Neupogen administration, but we could not rule out an infectious cause. Blood cultures were drawn and were negative. Urine cultures were taken and were not resulted back yet but no sign of infection in UA. No sign of infection on imaging. The patient was started on empiric vancomycin and Zosyn. Over the course of his stay, his white count did drop and he actually became pancytopenic, which is most likely due to the due to the recent chemotherapy treatment. Over the course of his stay his abdominal pain improved and he was able to tolerate oral and tube feedings. Disposition: Home Discharge Condition: Vitals stable, tolerating oral and tube feedings, ambulating without difficulty Discharge Instructions: Diet recommended by dietary dietitian includes 3 cartons a daily of Jevity, with the goal of 5 daily with 90 mLs of water before and after feeds and oral diet as tolerated, activity as tolerated. Symptoms to report physician include fever, chills, chest pain, shortness of breath, abdominal pain, swelling, discharge, nausea, vomiting. Discharge Medications: Naloxegol Oxalate [Movantik] 25 mg PO DAILY Ondansetron HCl [Zofran] 8 mg PO ASDIRECTED PRN Promethazine HCl 25 mg PO ASDIRECTED PRN fentaNYL [Duragesic] 50 mcg TRDERM ASDIRECTED Docusate Sodium/Sennosides [Senokot-S] 1 each PO BEDTIME PRN 30 Days #30 tablet Follow-up: PCP- Dr. Hsu on 11/15/17, keep appt with oncology on 11/10/17 Diagnosis: Stroke: No - Discharge Data Discharge Date: 11/09/17 Discharge Disposition: Home, Self-Care 01 Condition: Stable - Patient Summary/Data Consults: Consultations 11/07/17 11:25 Consult to Physician [CONS] Stat 11/08/17 17:51 Consult to [facility] [CONS] Routine Consult to Physical Therapy [PT Evaluation and Treatment] [CONS] Routine - Patient Instructions Diet: Usual Diet as Tolerated (3 cartons daily of Jevity working towards 5 cartons daily total, continue with 90 mL of water before and after feeds) Activity: As Tolerated Wound/Incision Care: Keep Operative Site/Wound Site Clean and Dry Notify Provider of: Fever, Increased Pain, Swelling and Redness, Drainage, Nausea and/or Vomiting Other/Special Instructions: Additional symptoms include chest pain, shortness of breath, or abdominal pain. - Discharge Plan Prescriptions/Med Rec: Docusate Sodium/Sennosides [Senokot-S] 1 each PO BEDTIME PRN 30 Days #30 tablet PRN Reason: Constipation Home Medications: Home Meds Naloxegol Oxalate [Movantik] 25 mg PO DAILY 10/19/17 [History] Ondansetron HCl [Zofran] 8 mg PO ASDIRECTED PRN 10/19/17 [History] Promethazine HCl 25 mg PO ASDIRECTED PRN 10/19/17 [History] fentaNYL [Duragesic] 50 mcg TRDERM ASDIRECTED 10/19/17 [History] Docusate Sodium/Sennosides [Senokot-S] 1 each PO BEDTIME PRN 30 Days #30 tablet 11/09/17 [Rx] Patient Handouts: PEG Tube Home Guide, [id number], Abdominal Pain, Adult, [id number] Forms: ED Department Discharge Referrals: PCP,None [Primary Care Provider] - Robbie Hsu MD [Resident] - 11/15/17 8:00 am - Patient Data Vitals - Most Recent: Last Vital Signs Temp 96.9 F 11/09/17 08:00 Pulse 76 11/09/17 04:00 Resp 18 11/09/17 11:00 BP 154/72 H 11/09/17 08:00 Pulse Ox 95 11/09/17 11:00 Weight - Most Recent: 71.2 kg I&O - Last 24 hours: Intake & Output 11/08/17 11/09/17 11/09/17 22:59 06:59 14:59 Intake Total 1705 1375 1097 Output Total 1000 200 Balance 705 1175 1097 Lab Results - Last 24 hrs: Laboratory Results - last 24 hr 11/09/17 11/09/17 11/09/17 Range/Units 05:28 05:28 09:38 WBC 3.83 L (4.0-11.0) K/uL RBC 3.02 L (4.50-5.90) M/uL Hgb 9.2 L (13.0-17.0) g/dL Hct 27.4 L (38.0-50.0) % MCV 90.7 (80.0-98.0) fL MCH 30.5 (27.0-32.0) pg MCHC 33.6 (31.0-37.0) g/dL RDW Std Deviation 55.8 (28.0-62.0) fl RDW Coeff of Stefani 17 H (11.0-15.0) % Plt Count 57 L (150-400) K/uL MPV 10.40 (7.40-12.00) fL Add Manual Diff YES Neutrophils % (Manual) 66 (48.0-80.0) % Band Neutrophils % 7 % Lymphocytes % (Manual) 17 (16.0-40.0) % Monocytes % (Manual) 1 (0.0-15.0) % Eosinophils % (Manual) 7 (0.0-7.0) % Basophils % (Manual) 2 H (0.0-1.5) % Nucleated RBC % 0.0 /100WBC Absolute Seg Neuts 2.5 (1.4-5.7) Band Neutrophils # 0.3 Lymphocytes # (Manual) 0.7 (0.6-2.4) Monocytes # (Manual) 0.0 (0.0-0.8) Eosinophils # (Manual) 0.3 (0.0-0.7) Basophils # (Manual) 0.1 (0.0-0.1) Nucleated RBCs # 0 K/uL Sodium 138 (136-148) mmol/L Potassium 3.4 L (3.5-5.1) mmol/L Chloride 105 (98-107) mmol/L Carbon Dioxide 29.4 (21.0-32.0) mmol/L BUN 7 (7.0-18.0) mg/dL Creatinine 0.7 L (0.8-1.3) mg/dL Est Cr Clr Drug Dosing 77.36 mL/min Estimated GFR (MDRD) > 60.0 ml/min Glucose 80 (74-106) mg/dL Calcium 7.9 L (8.5-10.1) mg/dL Total Bilirubin 0.7 (0.2-1.0) mg/dL AST 19 (15-37) IU/L ALT 19 (14-63) IU/L Alkaline Phosphatase 66 (46-116) U/L Total Protein 4.9 L (6.4-8.2) g/dL Albumin 2.2 L (3.4-5.0) g/dL Globulin 2.7 (2.0-3.5) g/dL Albumin/Globulin Ratio 0.8 L (1.3-2.8) Vancomycin Trough 11.6 H (5.0-10.0) ug/mL [facility] Results - Last 24 hrs: Microbiology 11/07/17 10:45 Aerobic Blood Culture - Preliminary Blood - Venous - Lab Draw NO GROWTH AFTER 2 DAYS Anaerobic Blood Culture - Preliminary NO GROWTH AFTER 2 DAYS 11/07/17 09:47 Aerobic Blood Culture - Preliminary Blood - Venous NO GROWTH AFTER 2 DAYS Anaerobic Blood Culture - Preliminary NO GROWTH AFTER 2 DAYS 11/07/17 17:20 Urine Culture - Final Urine, Clean Catch No Growth Med Orders - Current: Current Medications Fentanyl (Duragesic) 50 mcg TRDERM Q72H [facility] Last Admin: 11/07/17 15:01 Dose: 50 mcg Sodium Chloride (Normal Saline) 1,000 mls @ 125 mls/hr IV ASDIRECTED [facility] Last Admin: 11/09/17 01:59 Dose: 125 mls/hr Ondansetron HCl (Zofran) 4 mg IVPUSH Q4H PRN PRN Reason: Nausea Last Admin: 11/07/17 16:07 Dose: 4 mg Promethazine HCl (Phenergan) 25 mg IM Q6H PRN PRN Reason: Nausea/Vomiting Last Admin: 11/07/17 20:16 Dose: 25 mg Sodium Chloride (Saline Flush) 10 ml FLUSH ASDIRECTED PRN PRN Reason: Keep Vein Open Sodium Chloride (Saline Flush) 2.5 ml FLUSH ASDIRECTED PRN PRN Reason: Keep Vein Open Discontinued Medications Fentanyl (Sublimaze) 50 mcg IVPUSH ONETIME ONE Stop: 11/07/17 09:32 Last Admin: 11/07/17 10:52 Dose: 50 mcg Heparin Sodium (Porcine) (Heparin Sodium) 5,000 units SUBCUT Q8H [facility] Last Admin: 11/07/17 20:00 Dose: Not Given Sodium Chloride (Normal Saline) 1,000 mls @ 999 mls/hr IV STAT ONE Stop: 11/07/17 10:31 Last Admin: 11/07/17 09:30 Dose: 999 mls/hr Piperacillin Sod/Tazobactam (Sod 3.375 gm/ Sodium Chloride) 50 mls @ 100 mls/ hr IV ONETIME ONE Stop: 11/07/17 11:18 Last Admin: 11/07/17 11:28 Dose: 100 mls/hr Vancomycin HCl 1 gm/ Sodium (Chloride) 250 mls @ 166 mls/hr IV ONETIME ONE Stop: 11/07/17 12:42 Last Admin: 11/07/17 12:40 Dose: 166 mls/hr Piperacillin Sod/Tazobactam (Sod 3.375 gm/ Sodium Chloride) 50 mls @ 100 mls/ hr IV Q6H [facility] Last Admin: 11/09/17 04:09 Dose: 100 mls/hr Vancomycin HCl 1 gm/ Sodium (Chloride) 250 mls @ 250 mls/hr IV Q12H [facility] Last Admin: 11/09/17 10:22 Dose: Not Given Iopamidol (Isovue Multipack-370 (76%)) 85 ml IVPUSH ONETIME STA Stop: 11/08/17 09:11 Last Admin: 11/08/17 09:11 Dose: 85 ml Morphine Sulfate (Morphine) 2 mg IVPUSH Q2H PRN PRN Reason: Pain (severe 7-10) Stop: 11/08/17 13:16 Morphine Sulfate (Morphine) 2 mg IV Q2H PRN PRN Reason: Pain (severe 7-10) Last Admin: 11/07/17 15:26 Dose: 2 mg Ondansetron HCl (Zofran) 4 mg IVPUSH ONETIME ONE Stop: 11/07/17 09:32 Last Admin: 11/07/17 10:52 Dose: 4 mg Vancomycin HCl (Pharmacy To Dose - Vancomycin) 1 dose .XX ASDIRECTED [facility]
[2017-11-09] MEDS ORDERED: Heparin Sodium 100 Units/ML 3 ML Syringe FLUSH ONE (11:40)
[2017-11-09 12:11] VITALS: BP 112/66
== END 2017-11-09 12:38 | disposition home or self-care (01) | DRG 392 ==
LOC: MW.ED 09:20 → MW.ICU 11:23
PROVIDERS: ADMIT Internal Medicine; ATTEND Internal Medicine
DX: R10.9 Unspecified abdominal pain (principal); D61.818 Other pancytopenia; R09.02 Hypoxemia; C78.00 Secondary malignant neoplasm of unspecified lung; D72.829 Elevated white blood cell count, unspecified; D69.6 Thrombocytopenia, unspecified; C32.9 Malignant neoplasm of larynx, unspecified; I71.4 Abdominal aortic aneurysm, without rupture; R91.1 Solitary pulmonary nodule; K57.30 Diverticulosis of large intestine without perforation or abscess without bleeding; I27.20 Pulmonary hypertension, unspecified; I25.10 Atherosclerotic heart disease of native coronary artery without angina pectoris; J44.9 Chronic obstructive pulmonary disease, unspecified; K21.9 Gastro-esophageal reflux disease without esophagitis; R13.10 Dysphagia, unspecified; N40.0 Benign prostatic hyperplasia without lower urinary tract symptoms; Z93.1 Gastrostomy status; Z79.899 Other long term (current) drug therapy; Z87.891 Personal history of nicotine dependence
CPT/HCPCS: 36415; 71045; 74176; 80053; 82150; 83605; 83690; 85025; 85610; 87040 ×2; 93005; J2405; J3010; J7040; 71250; 71250-26; 74177; 74177-26; 76705; 76705-26; 80202; 81003; 87086; 97161-GP; 99283; A9270-GY; J1642; J2270; J2543; J2550; J3370; J7050; Q9967

== ENCOUNTER 2018-07-28 16:26 | Emergency (ER) | payer MEDICARE, OTHER ==
[2018-07-28 16:45] VITALS: BP 174/80
--- NOTE | 2018-07-28 18:15 | PCM.HP ---
H&P History of Present Illness - General Date of Service: 07/28/18 Source of Information: Patient, Family History Limitations: Reports: No Limitations - History of Present Illness Initial Comments - Free Text/Narative: Patient is an 83-year-old male with a permanent gastrostomy tube. The patients daughter came to see him today and he complained of discomfort with his feeding tube. When she looked at the site it appeared that the gastrostomy tube balloon had dislodged and was underneath his skin. He was advised to go to the emergency room to be assessed. It has been out for approximately 2-3 days. He has been able to feed himself with no issues. He denies any fevers chills or abdominal pain. Abdomen Pain Score (Numeric/FACES): 6 - Related Data Allergies/Adverse Reactions: Allergies Allergy/AdvReac Type Severity Reaction Status Date / Time No Known Allergies Allergy Verified 07/28/18 16:42 Home Medications: Home Meds Naloxegol Oxalate [Movantik] 25 mg PO DAILY 10/19/17 [History] Ondansetron HCl [Zofran] 8 mg PO ASDIRECTED PRN 10/19/17 [History] Promethazine HCl 25 mg PO ASDIRECTED PRN 10/19/17 [History] fentaNYL [Duragesic] 50 mcg TRDERM ASDIRECTED 10/19/17 [History] Docusate Sodium/Sennosides [Senokot-S] 1 each PO BEDTIME PRN 30 Days #30 tablet 11/09/17 [Rx] Past Medical History HEENT History: Reports: Other (See Below) Other HEENT History: has dentures but does not wear them Cardiovascular History: Reports: CAD Respiratory History: Reports: COPD Gastrointestinal History: Reports: Chronic Constipation, Colon Polyp, GERD Genitourinary History: Reports: BPH Neurological History: Reports: Other (See Below) Other Neuro History: numbness to left side of jaw since surgery Psychiatric History: Reports: None Oncologic (Cancer) History: Reports: Lung, Other (See Below) Other Oncologic History: laryngeal & lung cancer Dermatologic History: Reports: Psoriasis - Infectious Disease History Infectious Disease History: Reports: Chicken Pox, Measles, Mumps - Past Surgical History Head Surgeries/Procedures: Reports: None HEENT Surgical History: Reports: Other (See Below) Other HEENT Surgeries/Procedures: laryngectomy with stoma for laryngeal cancer Respiratory Surgical History: Reports: Other (See Below) Other Respiratory Surgeries/Procedures: laryngectomy with stoma Other GI Surgeries/Procedures: hx gastrostomy tube placement 11/04/17 Neurological Surgical History: Reports: None Musculoskeletal Surgical History: Reports: Other (See Below) Other Musculoskeletal Surgeries/Procedures:: surgery to right toe Oncologic Surgical History: Reports: Other (See Below) Other Oncologic Surgeries/Procedures: brian cath placement Social & Family History - Family History Family Medical History: Noncontributory - Tobacco Use Smoking Status *Q: Never Smoker - Caffeine Use Caffeine Use: Reports: None - Recreational Drug Use Recreational Drug Use: No H&P Review of Systems - Review of Systems: Review Of Systems: ROS reveals no pertinent complaints other than HPI. Exam - Exam Exam: See Below - Vital Signs Vital Signs: Last Vital Signs Temp 36.2 C 07/28/18 16:43 Pulse 62 07/28/18 16:43 Resp 16 07/28/18 16:43 BP 174/80 H 07/28/18 16:43 Pulse Ox 95 07/28/18 16:43 Weight: 61.235 kg - Exam General: Alert, Oriented, Cooperative HEENT: Conjunctiva Clear, Mucosa Moist & [place] Lungs: Clear to Auscultation Cardiovascular: Regular Rhythm GI/Abdominal Exam: Other (Gastrostomy feeding tube balloon is immediately below the skin. The skin overlying is slightly red but not warm.) - Problem List (1) Dislodged gastrostomy tube SNOMED Code(s): 659425618 ICD Code: Z43.1 - ENCOUNTER FOR ATTENTION TO GASTROSTOMY Status: Acute Current Visit: Yes Problem List Initiated/Reviewed/Updated: Yes Orders Last 24hrs: Active Orders 24 hr Category Date Time Status Abdomen Pelvis wo Cont [CT] Stat Exams 07/28/18 17:08 Taken Assessment/Plan Comment:: I took down the gastrostomy tube balloon. It appears to have been sitting immediately underneath the skin. The area of subcutaneous tissue below it was dilated. The tract to the stomach was still patent. I tested the balloon and it appeared to be intact with no leaking. I placed the 2 back in the stomach. I hyperinflated the gastrostomy balloon with 14 mils of normal saline. I then pulled the tube against the stomach and secured it to the skin at 4 cm. 4 stay sutures were placed along the bumper using 2-0 silk suture. The gastrostomy tube site was leaking both a small amount of blood and stomach contents. I bolstered the site with a large amount of dressings. I then flushed to the tube and it flushed easily. A CT scan was performed to ensure that the tube was in the correct position and that there was no complications around the gastrostomy tube site. I'm awaiting final review but the gastrostomy tube appears to be in the stomach and there is no evidence of complications around the site. I warned the family that the tube will be leaking more this weekend and that they will need to change the dressings frequently to keep the skin dry. He should not perform any strenuous activities for the next week or so. I will follow-up with him in clinic on Tuesday at 4:00. If they should have any issues with the tube over the weekend he should come back into the emergency room to be assessed. The family asked about resetting the tube but I explained to them that he would likely end up with issues again even with a new gastrostomy tube site. We will discuss this further in clinic. Of note his CT scan shows a very dilated and full bladder. I will see about cathetering the patient or having him use the restroom before leaving. If this is a chronic issue he may need to see her urologist.
--- NOTE | 2018-07-28 18:20 | CT ---
INDICATION: Evaluate feeding tube placement TECHNIQUE: CT abdomen and pelvis without contrast. COMPARISON: 11/07/2017 FINDINGS: Lower chest: Stable 6 millimeter oval nodule right lower lobe. 1.6 centimeter x 1.3 centimeter spiculated pulmonary nodule right lower lobe. This was not well demonstrated on 11/07/2017. 1.3 centimeter x 1.3 centimeter spiculated nodule left costophrenic angle. This was not present on prior study. Coronary artery calcified plaque. Liver: Unremarkable. Spleen: Unremarkable. Pancreas: Unremarkable. Gallbladder and bile ducts: Unremarkable. Kidneys: Unremarkable. No kidney or ureteral stones and no hydronephrosis. Adrenal glands: Unremarkable. GI tract: Percutaneous gastrostomy tube tip within the gastric lumen. Diffuse colonic fecal retention. Vascular structures: Stable infrarenal abdominal aortic aneurysm measuring 4.3 centimeter x 4.0 centimeter. Lymph nodes: Unremarkable. Miscellaneous: Unremarkable. No free air or significant free fluid. Pelvic Organs: The urinary bladder is distended. Bones: Right hip arthroplasty. Grade 1 anterolisthesis L4 over L5. Multilevel degenerative changes thoracolumbar spine. IMPRESSION: Percutaneous gastrostomy tube tip within the gastric lumen. Stable infra renal abdominal aortic aneurysm measuring 4.3 centimeter x 4.0 centimeter and not significantly changed compared to 11/07/2017. 1.6 centimeter x 1.2 centimeter spiculated pulmonary nodule right lower lobe. This was present on 11/07/2017. 1.3 centimeter x 1.3 centimeter spiculated nodule left costophrenic angle. This was not present on prior study. Findings worrisome for malignancy. Diffuse colonic fecal retention. Distended urinary bladder. Dictated by Rene Anders MD @ 07/28/2018 6:19:48 PM Please note that all CT scans at this facility use dose modulation, iterative reconstruction, and/or weight-based dosing when appropriate to reduce radiation dose to as low as reasonably achievable. Dictated by: Rene Anders MD @ 07/28/2018 18:19:51 (Electronically Signed)
== END 2018-07-28 18:35 | disposition home or self-care (01) ==
LOC: MW.ED 16:26
DX: K94.23 Gastrostomy malfunction (principal); Z79.899 Other long term (current) drug therapy
CPT/HCPCS: 74176; 99283; J2001

== ENCOUNTER 2018-10-10 22:54 | Emergency (ER) | payer MEDICARE, OTHER ==
[2018-10-10] MEDS ORDERED: Ondansetron 4 MG/2 ML SDV IVPUSH ONE (23:26)
[2018-10-10] MEDS ORDERED: Sodium Chloride 0.9% 1,000 ML IV ONE (23:26)
--- NOTE | 2018-10-10 23:41 | EDM.PDOC ---
<Elsa Lugo R - Last Filed: 10/10/18 23:29> ED HPI GENERAL MEDICAL PROBLEM - General Chief Complaint: General Stated Complaint: PT HAS FEVER Time Seen by Provider: 10/10/18 22:59 Source of Information: Reports: Patient History Limitations: Reports: No Limitations - History of Present Illness INITIAL COMMENTS - FREE TEXT/NARRATIVE: HISTORY AND PHYSICAL: History of present illness: Presents with his daughter who speaks for the patient as he has a laryngectomy and tracheostomy for laryngeal CA. His daughter states that he could not tolerate chemotherapy and he has metastases to the jaw, ear and neck structures. He was started on palliative immunotherapy. He had his second treatment on 10/05/2018 and now presents with fever, pain, rash. He also had some nausea yesterday but no vomiting. He has not complained about nausea today. His daughter states that he is a Code level III and is considering hospice. He is currently living alone and does eat small amounts although he has a G-tube. He denies cough or respiratory symptoms. He states his bowel movements are normal and he is voiding normally without dysuria. His 75mcg Fentanyl patch was applied today. He was recently started on Levothyroxin. Review of systems: As per history of present illness and below otherwise all systems reviewed and negative. Past medical history: As per history of present illness and as reviewed below otherwise noncontributory. Surgical history: As per history of present illness and as reviewed below otherwise noncontributory. Social history: No reported history of drug or alcohol abuse. Family history: As per history of present illness and as reviewed below otherwise noncontributory. Physical exam: HEENT: Atraumatic, normocephalic, pupils reactive, negative for conjunctival pallor or scleral icterus, mucous membranes moist, throat clear, neck supple, nontender, trachea midline. Lungs: Clear to auscultation, breath sounds equal bilaterally, chest nontender. Heart: S1S2, regular, negative for clicks, rubs, or JVD. Abdomen: Soft, nondistended, nontender. Negative for masses or hepatosplenomegaly. Negative for costovertebral tenderness. Pelvis: Stable nontender. Genitourinary: Deferred. Rectal: Deferred. Extremities: Atraumatic, negative for cords or calf pain. Neurovascular unremarkable. Neuro: Awake, alert, oriented. Cranial nerves II through XII unremarkable. Cerebellum unremarkable. Motor and sensory unremarkable throughout. Exam nonfocal. Diagnostics: [] Therapeutics: [] Impression: [] Plan: [] Definitive disposition and diagnosis as appropriate pending reevaluation and review of above. - Related Data Allergies Allergy/AdvReac Type Severity Reaction Status Date / Time No Known Allergies Allergy Verified 10/10/18 23:10 Home Meds: Home Meds Ondansetron HCl [Zofran] 8 mg PO ASDIRECTED PRN 10/19/17 [History] Promethazine HCl 25 mg PO ASDIRECTED PRN 10/19/17 [History] fentaNYL [Duragesic] 75 mcg TRDERM ASDIRECTED 10/19/17 [History] Eszopiclone 2 mg PO BEDTIME 10/10/18 [History] Levothyroxine 1 tab PO DAILY 10/10/18 [History] fentaNYL [Duragesic] 25 mcg TD ASDIRECTED 10/10/18 [History] Past Medical History HEENT History: Reports: Other (See Below) Other HEENT History: has dentures but does not wear them Cardiovascular History: Reports: CAD, Other (See Below) Other Cardiovascular History: Aortic Aneurysm Respiratory History: Reports: COPD Gastrointestinal History: Reports: Chronic Constipation, Colon Polyp, GERD Genitourinary History: Reports: BPH Musculoskeletal History: Reports: None Neurological History: Reports: Other (See Below) Other Neuro History: numbness to left side of jaw since surgery Psychiatric History: Reports: None Endocrine/Metabolic History: Reports: None Hematologic History: Reports: None Immunologic History: Reports: None Oncologic (Cancer) History: Reports: Lung, Other (See Below) Other Oncologic History: laryngeal & lung cancer Dermatologic History: Reports: Psoriasis - Infectious Disease History Infectious Disease History: Reports: None - Past Surgical History Head Surgeries/Procedures: Reports: None HEENT Surgical History: Reports: Other (See Below) Other HEENT Surgeries/Procedures: laryngectomy with stoma for laryngeal cancer Respiratory Surgical History: Reports: Other (See Below) Other Respiratory Surgeries/Procedures: laryngectomy with stoma Other GI Surgeries/Procedures: hx gastrostomy tube placement 11/04/17 Neurological Surgical History: Reports: None Musculoskeletal Surgical History: Reports: Other (See Below) Other Musculoskeletal Surgeries/Procedures:: surgery to right toe Oncologic Surgical History: Reports: Other (See Below) Other Oncologic Surgeries/Procedures: brian cath placement Social & Family History - Family History Family Medical History: Noncontributory - Tobacco Use Smoking Status *Q: Former Smoker Used Tobacco, but Quit: No - Caffeine Use Caffeine Use: Reports: Soda - Recreational Drug Use Recreational Drug Use: No ED ROS GENERAL - Review of Systems Review Of Systems: ROS reveals no pertinent complaints other than HPI. ED EXAM, GENERAL - Physical Exam Exam: See Below Exam Limited By: Language Barrier (Laryngectomy) General Appearance: Alert, No Apparent Distress, Other ([place]) Ears: Normal External Exam Nose: Normal Inspection Throat/Mouth: Other (Has a tumor on the roof of his mouth) Head: Atraumatic, Normocephalic Neck: Other (Surgical tracheostomy) Respiratory/Chest: No Respiratory Distress, Lungs Clear, Normal Breath Sounds Cardiovascular: Normal Peripheral Pulses, Regular Rate, Rhythm, No Murmur GI/Abdominal: Normal Bowel Sounds, Soft, No Distention, Other (G-tube, tenderness lateral adjacent ) Back Exam: Normal Inspection Extremities: Normal Inspection Neurological: Alert, Oriented Psychiatric: Flat Affect Skin Exam: Warm, Dry, Intact, Normal Color, Other (Guttate psoriasis. A scaling white macules scattered about hands without inflammation) Course - Vital Signs Last Recorded V/S: Last Vital Signs Temp 37.8 C 10/11/18 00:04 Pulse 46 L 10/11/18 00:12 Resp 16 10/11/18 00:12 BP 153/55 H 10/11/18 00:12 Pulse Ox 95 10/11/18 00:12 - Orders/Labs/Meds Orders: Active Orders 24 hr Category Date Time Status CULTURE BLOOD [BC] Stat Lab 10/10/18 23:35 Received CULTURE BLOOD [BC] Stat Lab 10/11/18 00:18 Received CULTURE URINE [RM] Stat Lab 10/10/18 23:40 Received fentaNYL [Sublimaze] Med 10/10/18 23:48 Active 50 mcg IVPUSH Q5M PRN Medication Orders Fentanyl (Sublimaze) 50 mcg IVPUSH Q5M PRN PRN Reason: Pain Last Admin: 10/10/18 23:52 Dose: 50 mcg Labs: Laboratory Tests 10/10/18 10/10/18 10/10/18 Range/Units 23:35 23:35 23:35 WBC 6.35 (4.0-11.0) K/uL RBC 3.96 L (4.50-5.90) M/uL Hgb 12.0 L (13.0-17.0) g/dL Hct 36.3 L (38.0-50.0) % MCV 91.7 (80.0-98.0) fL MCH 30.3 (27.0-32.0) pg MCHC 33.1 (31.0-37.0) g/dL RDW Std Deviation 53.0 (28.0-62.0) fl RDW Coeff of Stefani 16 H (11.0-15.0) % Plt Count 69 L (150-400) K/uL MPV 10.20 (7.40-12.00) fL Neut % (Auto) 71.6 (48.0-80.0) % Lymph % (Auto) 13.4 L (16.0-40.0) % Owen % (Auto) 14.5 (0.0-15.0) % Eos % (Auto) 0.3 (0.0-7.0) % Baso % (Auto) 0.2 (0.0-1.5) % Neut # (Auto) 4.6 (1.4-5.7) K/uL Lymph # (Auto) 0.9 (0.6-2.4) K/uL Owen # (Auto) 0.9 H (0.0-0.8) K/uL Eos # (Auto) 0.0 (0.0-0.7) K/uL Baso # (Auto) 0.0 (0.0-0.1) K/uL Nucleated RBC % 0.0 /100WBC Nucleated RBCs # 0 K/uL Lactate 1.5 (0.20-2.00) mmol/L Sodium 136 (136-148) mmol/L Potassium 4.7 (3.5-5.1) mmol/L Chloride 101 (98-107) mmol/L Carbon Dioxide 27.1 (21.0-32.0) mmol/L BUN 30 H (7.0-18.0) mg/dL Creatinine 1.0 (0.8-1.3) mg/dL Est Cr Clr Drug Dosing 45.86 mL/min Estimated GFR (MDRD) > 60.0 ml/min Glucose 112 H (74-106) mg/dL Calcium 9.1 (8.5-10.1) mg/dL Total Bilirubin 0.3 (0.2-1.0) mg/dL AST 16 (15-37) IU/L ALT 25 (14-63) IU/L Alkaline Phosphatase 77 (46-116) U/L Total Protein 7.5 (6.4-8.2) g/dL Albumin 3.2 L (3.4-5.0) g/dL Globulin 4.3 H (2.6-4.0) g/dL Albumin/Globulin Ratio 0.7 L (0.9-1.6) Urine Color Urine Appearance Urine pH (5.0-8.0) Ur Specific [place] (1.001-1.035) Urine Protein (NEGATIVE) mg/dL Urine Glucose (UA) (NEGATIVE) mg/dL Urine Ketones (NEGATIVE) mg/dL Urine Occult Blood (NEGATIVE) Urine Nitrite (NEGATIVE) Urine Bilirubin (NEGATIVE) Urine Urobilinogen (<2.0) EU/dL Ur Leukocyte Esterase (NEGATIVE) Urine RBC (0-2/HPF) Urine WBC (0-5/HPF) Ur Epithelial Cells (NONE-FEW) Urine Bacteria (NEGATIVE) Urine Mucus (NONE-MOD) 10/10/18 Range/Units 23:40 WBC (4.0-11.0) K/uL RBC (4.50-5.90) M/uL Hgb (13.0-17.0) g/dL Hct (38.0-50.0) % MCV (80.0-98.0) fL MCH (27.0-32.0) pg MCHC (31.0-37.0) g/dL RDW Std Deviation (28.0-62.0) fl RDW Coeff of Stefani (11.0-15.0) % Plt Count (150-400) K/uL MPV (7.40-12.00) fL Neut % (Auto) (48.0-80.0) % Lymph % (Auto) (16.0-40.0) % Owen % (Auto) (0.0-15.0) % Eos % (Auto) (0.0-7.0) % Baso % (Auto) (0.0-1.5) % Neut # (Auto) (1.4-5.7) K/uL Lymph # (Auto) (0.6-2.4) K/uL Owen # (Auto) (0.0-0.8) K/uL Eos # (Auto) (0.0-0.7) K/uL Baso # (Auto) (0.0-0.1) K/uL Nucleated RBC % /100WBC Nucleated RBCs # K/uL Lactate (0.20-2.00) mmol/L Sodium (136-148) mmol/L Potassium (3.5-5.1) mmol/L Chloride (98-107) mmol/L Carbon Dioxide (21.0-32.0) mmol/L BUN (7.0-18.0) mg/dL Creatinine (0.8-1.3) mg/dL Est Cr Clr Drug Dosing mL/min Estimated GFR (MDRD) ml/min Glucose (74-106) mg/dL Calcium (8.5-10.1) mg/dL Total Bilirubin (0.2-1.0) mg/dL AST (15-37) IU/L ALT (14-63) IU/L Alkaline Phosphatase (46-116) U/L Total Protein (6.4-8.2) g/dL Albumin (3.4-5.0) g/dL Globulin (2.6-4.0) g/dL Albumin/Globulin Ratio (0.9-1.6) Urine Color YELLOW Urine Appearance CLEAR Urine pH 8.0 (5.0-8.0) Ur Specific [place] 1.020 (1.001-1.035) Urine Protein 30 H (NEGATIVE) mg/dL Urine Glucose (UA) NEGATIVE (NEGATIVE) mg/dL Urine Ketones NEGATIVE (NEGATIVE) mg/dL Urine Occult Blood SMALL H (NEGATIVE) Urine Nitrite POSITIVE H (NEGATIVE) Urine Bilirubin NEGATIVE (NEGATIVE) Urine Urobilinogen 0.2 (<2.0) EU/dL Ur Leukocyte Esterase LARGE H (NEGATIVE) Urine RBC 10-12 (0-2/HPF) Urine WBC 54-58 (0-5/HPF) Ur Epithelial Cells RARE (NONE-FEW) Urine Bacteria 3+ H (NEGATIVE) Urine Mucus LIGHT (NONE-MOD) Meds: Medications Generic Name Dose Route Start Last Admin Trade Name Freq PRN Reason Stop Dose Admin Fentanyl 50 mcg 10/10/18 23:48 10/10/18 23:52 Sublimaze IVPUSH 50 mcg Q5M PRN Administration Pain Discontinued Medications Generic Name Dose Route Start Last Admin Trade Name [place] PRN Reason Stop Dose Admin Sodium Chloride 1,000 mls @ 999 mls/hr 10/10/18 23:26 10/10/18 23:46 Normal Saline IV 10/11/18 00:26 999 mls/hr STAT ONE Administration Ceftriaxone Sodium/Dextrose 1 50 mls @ 100 mls/hr 10/11/18 00:22 10/11/18 00: 31 gm/ Premix IV 10/11/18 00:51 100 mls/hr ONETIME ONE Administration Ondansetron HCl 4 mg 10/10/18 23:26 10/10/18 23:54 Zofran IVPUSH 10/10/18 23:27 Not Given ONETIME ONE Departure - Departure Disposition: Home, Self-Care 01 Clinical Impression: Metastatic cancer Fever Qualifiers: Fever type: unspecified Qualified Code(s): R50.9 - Fever, unspecified UTI (urinary tract infection) Qualifiers: Urinary tract infection type: site unspecified Hematuria presence: without hematuria Qualified Code(s): N39.0 - Urinary tract infection, site not specified - Discharge Information Referrals: PCP,None [Primary Care Provider] - Forms: ED Department Discharge Additional Instructions: The following information is given to patients seen in the emergency department who are being discharged to home. This information is to outline your options for follow-up care. We provide all patients seen in our emergency department with a follow-up referral. The need for follow-up, as well as the timing and circumstances, are variable depending upon the specifics of your emergency department visit. If you don't have a primary care physician on staff, we will provide you with a referral. We always advise you to contact your personal physician following an emergency department visit to inform them of the circumstance of the visit and for follow-up with them and/or the need for any referrals to a consulting specialist. The emergency department will also refer you to a specialist when appropriate. This referral assures that you have the opportunity for followup care with a specialist. All of these measure are taken in an effort to provide you with optimal care, which includes your followup. Under all circumstances we always encourage you to contact your private physician who remains a resource for coordinating your care. When calling for followup care, please make the office aware that this follow-up is from your recent emergency room visit. If for any reason you are refused follow-up, please contact the [facility] emergency department at and ask to speak to the emergency department charge nurse. [facility] Primary care- Internal Medicine and Family [address] [address] Discontinue all home medications and add the Percocet that you have for breakthrough pain as needed. Please take the Levaquin as prescribed and push hydration as we discussed. Continue to treat fevers of 100.4 or higher with Tylenol or ibuprofen. Keep your clinic appointment on and return to ER as needed and as discussed. Please connect with your provider in the morning to let them know about today's events to see whether or not they want to move the appointment sooner. Cultures of blood and urine have been sent and if those reveal any need for change in therapy he will be contacted. - My Orders Last 24 Hours: My Active Orders 10/11/18 00:18 CULTURE BLOOD [BC] Stat - Assessment/Plan Last 24 Hours: My Active Orders 10/11/18 00:18 CULTURE BLOOD [BC] Stat <Ginny Stein - Last Filed: 10/11/18 00:53> ED HPI GENERAL MEDICAL PROBLEM - History of Present Illness INITIAL COMMENTS - FREE TEXT/NARRATIVE: This is Dr. Stein dictating an addendum note as I'm assuming care of this case at 12 midnight. Daughter is at bedside and she has a nurse and is very educated in this patient's care and management. Repeat temperature was 100.1. The patient is a code 3 and does have metastatic cancer and last received the immunotherapy last and does have a scheduled appointment here with our cancer clinic on . They are aware of the lab findings/CXR and most significantly the urinary tract infection. I will give him a dose of Rocephin here and will give him Levaquin for home and I have offered them observation admission for further care and management and the patient is refusing to stay and wants to go home and the daughter feels this might be the more appropriate place for him in light of his advanced disease. They do have Percocet at home for breakthrough pain and they will utilize that and they're aware of need for fever management. The patient does have a feeding tube in place and daughter said she can increase the hydration in light of the elevated BUN. They are aware of my concerns and accepts those but would prefer to go home. Impression: Post immunotherapy fever with UTI, metastatic laryngeal cancer ED ROS GENERAL - Review of Systems Review Of Systems: ROS reveals no pertinent complaints other than HPI. ED EXAM, GENERAL - Physical Exam Exam: See Below (See dictation) Departure - Departure Time of Disposition: 00:52 Condition: Fair
[2018-10-10] MEDS ORDERED: fentaNYL 100 MCG/2 ML SDV IVPUSH PRN (23:48)
[2018-10-11 00:05] LABS: BLOOD UREA NITROGEN,BUN 30 mg/dL (7.0-18.0); CARBON DIOXIDE,CO2 27.1 mmol/L (21.0-32.0); CHLORIDE,CL 101 mmol/L (98-107); GLUCOSE RANDOM 112 mg/dL (74-106); POTASSIUM,K 4.7 mmol/L (3.5-5.1); SODIUM,NA 136 mmol/L (136-148)
[2018-10-11] MEDS ORDERED: cefTRIAXone 1 GM in Premix Bag 1 BAG IV ONE (00:22)
--- NOTE | 2018-10-11 00:48 | CR ---
INDICATION: Pain and shortness of breath TECHNIQUE: Chest 2 views. COMPARISON: None FINDINGS: Cardiovascular and mediastinum: Heart size and vasculature are normal in caliber and appearance. Mediastinum is within normal limits. Right-sided [id number] tip terminates in the proximal SVC. Lungs and pleural spaces: Lungs are clear. No sign of infiltrate or mass. No sign of pleural effusion. No pneumothorax. Bones and soft tissues: No significant findings. IMPRESSION: Unremarkable chest. Dictated by Rene Anders MD @ 10/11/2018 12:46:36 AM Dictated by: Rene Anders MD @ 10/11/2018 00:46:42 (Electronically Signed)
[2018-10-11 01:23] VITALS: BP 161/64; PULSE 50
== END 2018-10-11 01:23 | disposition home or self-care (01) ==
LOC: MW.ED 22:54
DX: C32.9 Malignant neoplasm of larynx, unspecified (principal); R50.81 Fever presenting with conditions classified elsewhere; N39.0 Urinary tract infection, site not specified; C79.89 Secondary malignant neoplasm of other specified sites; C79.2 Secondary malignant neoplasm of skin; Z79.899 Other long term (current) drug therapy
CPT/HCPCS: 36415; 71045; 80053; 81001; 83605; 85025; 87040; 87086; 87088; 87186; 96361; 96365; 96375; 99284; J0696; J3010; J7040

== ENCOUNTER 2018-10-12 12:05 | Inpatient (IN) | payer MEDICARE, OTHER ==
[2018-10-12] MEDS ORDERED: Ondansetron 4 MG/2 ML SDV IVPUSH PRN (12:17)
[2018-10-12] MEDS ORDERED: Sodium Chloride 0.9% 1,000 ML IV ONE ×2 (12:52→12:57)
[2018-10-12 13:38] LABS: CHLORIDE,CL 98 mmol/L (98-107); SODIUM,NA 134 mmol/L (136-148)
[2018-10-12] MEDS: cefTRIAXone 1 GM in Premix Bag 1 BAG IV SCH (13:58)
[2018-10-12] MEDS ORDERED: Enoxaparin 40 MG/0.4 ML Syringe SUBCUT SCH (14:00)
--- NOTE | 2018-10-12 14:18 | PCM.HP ---
H&P History of Present Illness - General Date of Service: 10/12/18 Admit Problem/Dx: Admission Diagnosis/Problem Admission Diagnosis/Problem Failure to thrive - History of Present Illness Initial Comments - Free Text/Narative: Patient is an 83-year-old male who was directly admitted from the [facility] for dehydration, failure to thrive and UTI. 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 He is status post laryngectomy and tracheostomy. Patient is non-verbal at baseline and uses a writing pad to communicate. He was seen in the ER approximately 2 days ago and was diagnosed with a UTI and prescribed antibiotics. Over the past 2 days, his daughter reports that he has had persistent fevers and been feeling very weak. The patient had a follow-up appointment with his oncologist today, Dr. Hinton, who recommended patient be directly admitted for further evaluation and treatment. Patient started immunotherapy for laryngeal cancer recently and receives immunotherapy every 3 weeks. He was treated with chemotherapy previously, however, was discontinued and he was subsequently started on immunotherapy. Patient also goes to the [facility] to received 1L of normal saline fluids every and . He also has a PEG tube in place and still eats some food orally for pleasure. He also takes all of his medications orally. Family reports that at his baseline, patient is very active, lives alone and enjoys spending time outdoors in his garden. At bedside, patient reports feeling pain in the left side of his face and neck which is chronic. He denied any shortness of breath, cough, nausea, vomiting, chest pain, abdominal pain, numbness, tingling or any urinary complaints. - Related Data Allergies/Adverse Reactions: Allergies Allergy/AdvReac Type Severity Reaction Status Date / Time No Known Allergies Allergy Verified 10/12/18 13:48 Home Medications: Home Meds Ondansetron HCl [Zofran] 8 mg PO TID PRN 10/19/17 [History] Promethazine HCl 25 mg PO TID PRN 10/19/17 [History] fentaNYL [Duragesic] 75 mcg TRDERM .72HR 10/19/17 [History] Eszopiclone 2 mg PO BEDTIME 10/10/18 [History] Levothyroxine 1 tab PO DAILY 10/10/18 [History] fentaNYL [Duragesic] 25 mcg TD .Q72HR 10/10/18 [History] Acetaminophen/oxyCODONE [Percocet 325-5 MG] 2 tab PO Q6H PRN 10/12/18 [History] Prochlorperazine Maleate [Compazine] 10 mg PO TID PRN 10/12/18 [History] Promethazine [Phenadoz] 1 applic RECTAL TID PRN 10/12/18 [History] levoFLOXacin [Levaquin] 500 mg PO DAILY 10/12/18 [History] Past Medical History HEENT History: Reports: Other (See Below) Other HEENT History: has dentures but does not wear them Cardiovascular History: Reports: CAD, Other (See Below) Other Cardiovascular History: Aortic Aneurysm Respiratory History: Reports: COPD Gastrointestinal History: Reports: Chronic Constipation, Colon Polyp, GERD Genitourinary History: Reports: BPH Musculoskeletal History: Reports: None Neurological History: Reports: Other (See Below) Other Neuro History: numbness to left side of jaw since surgery Psychiatric History: Reports: None Endocrine/Metabolic History: Reports: None Hematologic History: Reports: None Immunologic History: Reports: None Oncologic (Cancer) History: Reports: Lung, Other (See Below) Other Oncologic History: laryngeal & lung cancer Dermatologic History: Reports: Psoriasis - Infectious Disease History Infectious Disease History: Reports: Chicken Pox, Measles - Past Surgical History Head Surgeries/Procedures: Reports: None HEENT Surgical History: Reports: Other (See Below) Other HEENT Surgeries/Procedures: laryngectomy with stoma for laryngeal cancer Respiratory Surgical History: Reports: Other (See Below) Other Respiratory Surgeries/Procedures: laryngectomy with stoma GI Surgical History: Reports: Other (See Below) Other GI Surgeries/Procedures: hx gastrostomy tube placement 11/04/17 Male Surgical History: Reports: None Neurological Surgical History: Reports: None Musculoskeletal Surgical History: Reports: Other (See Below) Other Musculoskeletal Surgeries/Procedures:: surgery to right toe Oncologic Surgical History: Reports: Other (See Below) Other Oncologic Surgeries/Procedures: brian cath placement Social & Family History - Family History Family Medical History: Noncontributory - Tobacco Use Smoking Status *Q: Former Smoker Years of Tobacco use: 74 Used Tobacco, but Quit: Yes Month/Year Tobacco Last Used: 2014 Second Hand Smoke Exposure: No - Caffeine Use Caffeine Use: Reports: None - Recreational Drug Use Recreational Drug Use: No H&P Review of Systems - Review of Systems: Review Of Systems: ROS reveals no pertinent complaints other than HPI. Exam - Exam Exam: See Below - Vital Signs Vital Signs: Last Vital Signs Temp 97.7 F 10/12/18 12:18 Pulse 47 L 10/12/18 12:18 Resp 18 10/12/18 12:18 BP 116/56 L 10/12/18 12:18 Pulse Ox Weight: 130 lb 6.4 oz - Exam General: Other (Ill-appearing, non-verbal at baseline) HEENT: Conjunctiva Clear, EOMI, Hearing Intact, Pupils Equal Neck: Supple, Other (Tracheostomy) Lungs: Clear to Auscultation, Normal Respiratory Effort Cardiovascular: Regular Rate, Regular Rhythm GI/Abdominal Exam: Normal Bowel Sounds, Soft, Non-Tender, No Distention, Other ( PEG tube in place in left abdomen) Extremities: Normal Inspection. No: No Pedal Edema Peripheral Pulses: 2+: Posterior Tibial (L), Posterior Tibial (R) Skin: Warm, Dry, Intact Neurological: Strength Equal Bilateral, Normal Tone, Sensation Intact, Other Psychiatric: Alert - Patient Data Lab Results Last 24 hrs: Laboratory Results - last 24 hr 10/12/18 10/12/18 Range/Units 13:05 13:05 WBC 6.64 (4.0-11.0) K/uL RBC 3.86 L (4.50-5.90) M/uL Hgb 11.5 L (13.0-17.0) g/dL Hct 34.9 L (38.0-50.0) % MCV 90.4 (80.0-98.0) fL MCH 29.8 (27.0-32.0) pg MCHC 33.0 (31.0-37.0) g/dL RDW Std Deviation 51.7 (28.0-62.0) fl RDW Coeff of Stefani 16 H (11.0-15.0) % Plt Count 63 L (150-400) K/uL MPV 9.80 (7.40-12.00) fL Add Manual Diff YES Neutrophils % (Manual) 70 (48.0-80.0) % Lymphocytes % (Manual) 20 (16.0-40.0) % Monocytes % (Manual) 10 (0.0-15.0) % Nucleated RBC % 0.0 /100WBC Absolute Seg Neuts 4.6 (1.4-5.7) Lymphocytes # (Manual) 1.3 (0.6-2.4) Monocytes # (Manual) 0.7 (0.0-0.8) Nucleated RBCs # 0 K/uL Sodium 134 L (136-148) mmol/L Potassium 4.1 (3.5-5.1) mmol/L Chloride 98 (98-107) mmol/L Carbon Dioxide 27.1 (21.0-32.0) mmol/L BUN 36 H (7.0-18.0) mg/dL Creatinine 1.1 (0.8-1.3) mg/dL Est Cr Clr Drug Dosing 41.82 mL/min Estimated GFR (MDRD) > 60.0 ml/min Glucose 108 H (74-106) mg/dL Calcium 9.0 (8.5-10.1) mg/dL Total Bilirubin 0.3 (0.2-1.0) mg/dL AST 12 L (15-37) IU/L ALT 19 (14-63) IU/L Alkaline Phosphatase 61 (46-116) U/L Total Protein 7.1 (6.4-8.2) g/dL Albumin 2.9 L (3.4-5.0) g/dL Globulin 4.2 H (2.6-4.0) g/dL Albumin/Globulin Ratio 0.7 L (0.9-1.6) Result Diagrams: 10/12/18 13:05 10/12/18 13:05 Problem List Initiated/Reviewed/Updated: Yes Orders Last 24hrs: Active Orders 24 hr Category Date Time Status Patient Status [ADT] Routine ADT 10/12/18 12:18 Active Antiembolic Devices [RC] PER UNIT ROUTINE Care 10/12/18 12:22 Active Aspiration Precautions [RC] ASDIRECTED Care 10/12/18 12:42 Active Oxygen Therapy [RC] PRN Care 10/12/18 12:18 Active Up With Assistance [RC] ASDIRECTED Care 10/12/18 12:17 Active VTE/DVT Education [RC] PER UNIT ROUTINE Care 10/12/18 12:18 Active Vital Signs [RC] Q4H Care 10/12/18 12:18 Active Consult to Radio Repair Teacher [CONS] Routine Cons 10/12/18 12:36 Active Consult to Home Health [CONS] Routine Cons 10/12/18 12:49 Active Consult to Hospice [CONS] Routine Cons 10/12/18 12:49 Active Consult to Respiratory Therapy [Respiratory Care Assess Cons 10/12/18 12:39 Active and Treatment] [CONS] Routine Soft Diet [DIET] Diet 10/12/18 Lunch Active Tube Feeding [Enteral Feedings] [RC] Click to Edit Diet 10/12/18 12:42 Active CULTURE BLOOD [BC] Stat Lab 10/12/18 13:48 Received CULTURE BLOOD [BC] Stat Lab 10/12/18 14:05 Received CULTURE URINE [RM] Stat Lab 10/12/18 13:16 Ordered UA W/MICROSCOPIC [URIN] Routine Lab 10/12/18 13:13 Ordered Ondansetron [Zofran] Med 10/12/18 12:17 Active 4 mg IVPUSH Q4H PRN Sodium Chloride 0.9% [Normal Saline] 1,000 ml Med 10/12/18 12:57 Active IV STAT cefTRIAXone [Rocephin in Dextrose,Iso-Osm 1 GM/50 ML] 1 Med 10/12/18 13:30 Active gm Premix Bag 1 bag IV Q24H Blood Culture x2 Reflex Set [OM.PC] Stat Oth 10/12/18 13:13 Ordered Sequential Compression Device [OM.PC] Per Unit Routine Oth 10/12/18 12:20 Ordered Resuscitation Status Routine Resus Stat 10/12/18 12:17 Ordered Medication Orders Sodium Chloride (Normal Saline) 1,000 mls @ 100 mls/hr IV STAT ONE Stop: 10/12/18 22:56 Last Admin: 10/12/18 13:56 Dose: 100 mls/hr Ceftriaxone Sodium/Dextrose 1 (gm/ Premix) 50 mls @ 100 mls/hr IV Q24H [facility] Last Admin: 10/12/18 13:58 Dose: 100 mls/hr Ondansetron HCl (Zofran) 4 mg IVPUSH Q4H PRN PRN Reason: Nausea Assessment/Plan Comment:: Assessment: 1. Urinary tract infection. 2. Dehydration. 3. Generalized weakness secondary to #1 and #2. 4. Failure to thrive secondary to protein calorie malnutrition, requiring PEG tube. 5. Laryngeal cancer, on immunotherapy. 6. Chronic pain. 7. Thrombocytopenia. 8. Past medical history of CAD, AAA, bradycardia and COPD. Plan: 1. For UTI, will start patient on IV ceftriaxone. Will order CBC, CMP, UA, urine culture and blood cultures. Patient's blood cultures from ER 2 days ago are negative. 2. For dehydration, will hydrate patient with IV normal saline, 1 liter at 100 cc/hr. 3. For failure to thrive secondary to protein calorie malnutrition, will resume patient's PEG tube feeds. Radio Repair Teacher will be consulted. Soft diet will be ordered for pleasure feeds. 4. For laryngeal cancer, patient receives immunotherapy every 3 weeks. He had his last dose of immunotherapy approximately 1 week ago. Home health and hospice will be consulted. 5. For chronic pain, patient's home pain medication regimen will be continued including fentanyl patch and Percocet 325/5 2tabs PO q6h prn. 6. For thrombocytopenia, will monitor with next set of labs. 7. For past medical history, will continue with home medications.
[2018-10-12] MEDS ORDERED: Prochlorperazine 10 MG Tab PO PRN (14:21)
[2018-10-12] MEDS ORDERED: Promethazine 25 MG Tab PO PRN (14:21)
[2018-10-12] MEDS ORDERED: Ondansetron 4 MG Tab PO PRN (14:21)
[2018-10-12] MEDS ORDERED: Promethazine 25 MG Supp RECTAL PRN (14:21)
[2018-10-12] MEDS ORDERED: fentaNYL 25 MCG/HR Transdermal Patch TRDERM SCH (14:30)
[2018-10-12] MEDS ORDERED: fentaNYL 50 MCG/HR Transdermal Patch TRDERM SCH (14:30)
[2018-10-12] MEDS ORDERED: fentaNYL 75 MCG/HR Transdermal Patch TRDERM SCH (14:43)
[2018-10-12] MEDS: Acetaminophen/oxyCODONE 325-5 MG Tab PO PRN (14:53)
[2018-10-12] MEDS: ESZOPICLONE 1 MG PO SCH (21:04)
[2018-10-13 05:42] LABS: CHLORIDE,CL 101 mmol/L (98-107); SODIUM,NA 135 mmol/L (136-148)
[2018-10-13] MEDS: Levothyroxine 25 MCG Tab PO SCH (06:43)
--- NOTE | 2018-10-13 08:21 | PCM.PN ---
- General Info Date of Service: 10/13/18 Subjective Update: 83-year-old male direct admit from cancer center for dehydration, failure to thrive and UTI. 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 Patient has been receiving feeds through PEG tube. Urinalysis done yesterday shows urinary tract infection. At bedside this morning, patient communicated that he did not sleep very much. He denied any pain, nausea, fevers or shortness of breath. He still feels very fatigued but says it has improved a little bit since yesterday. - Patient Data Vitals - Most Recent: Last Vital Signs Temp 97.4 F 10/13/18 08:00 Pulse 66 10/13/18 08:00 Resp 16 10/13/18 08:00 BP 122/81 10/13/18 08:00 Pulse Ox 92 L 10/13/18 08:00 Weight - Most Recent: 130 lb 6.4 oz I&O - Last 24 Hours: Intake & Output 10/12/18 10/13/18 10/13/18 22:59 06:59 14:59 Intake Total 390 1287 Balance 390 1287 Lab Results Last 24 Hours: Laboratory Results - last 24 hr 10/12/18 10/12/18 10/12/18 Range/Units 13:05 13:05 17:50 WBC 6.64 (4.0-11.0) K/uL RBC 3.86 L (4.50-5.90) M/uL Hgb 11.5 L (13.0-17.0) g/dL Hct 34.9 L (38.0-50.0) % MCV 90.4 (80.0-98.0) fL MCH 29.8 (27.0-32.0) pg MCHC 33.0 (31.0-37.0) g/dL RDW Std Deviation 51.7 (28.0-62.0) fl RDW Coeff of Stefani 16 H (11.0-15.0) % Plt Count 63 L (150-400) K/uL MPV 9.80 (7.40-12.00) fL Add Manual Diff YES Neutrophils % (Manual) 70 (48.0-80.0) % Band Neutrophils % % Lymphocytes % (Manual) 20 (16.0-40.0) % Monocytes % (Manual) 10 (0.0-15.0) % Basophils % (Manual) (0.0-1.5) % Nucleated RBC % 0.0 /100WBC Absolute Seg Neuts 4.6 (1.4-5.7) Band Neutrophils # Lymphocytes # (Manual) 1.3 (0.6-2.4) Monocytes # (Manual) 0.7 (0.0-0.8) Basophils # (Manual) (0.0-0.1) Nucleated RBCs # 0 K/uL Sodium 134 L (136-148) mmol/L Potassium 4.1 (3.5-5.1) mmol/L Chloride 98 (98-107) mmol/L Carbon Dioxide 27.1 (21.0-32.0) mmol/L BUN 36 H (7.0-18.0) mg/dL Creatinine 1.1 (0.8-1.3) mg/dL Est Cr Clr Drug Dosing 41.82 mL/min Estimated GFR (MDRD) > 60.0 ml/min Glucose 108 H (74-106) mg/dL Calcium 9.0 (8.5-10.1) mg/dL Total Bilirubin 0.3 (0.2-1.0) mg/dL AST 12 L (15-37) IU/L ALT 19 (14-63) IU/L Alkaline Phosphatase 61 (46-116) U/L Total Protein 7.1 (6.4-8.2) g/dL Albumin 2.9 L (3.4-5.0) g/dL Globulin 4.2 H (2.6-4.0) g/dL Albumin/Globulin Ratio 0.7 L (0.9-1.6) Urine Color YELLOW Urine Appearance SLT CLOUDY Urine pH 6.5 (5.0-8.0) Ur Specific Falcon 1.020 (1.001-1.035) Urine Protein 100 H (NEGATIVE) mg/dL Urine Glucose (UA) 100 H (NEGATIVE) mg/dL Urine Ketones NEGATIVE (NEGATIVE) mg/dL Urine Occult Blood LARGE H (NEGATIVE) Urine Nitrite POSITIVE H (NEGATIVE) Urine Bilirubin NEGATIVE (NEGATIVE) Urine Urobilinogen 0.2 (<2.0) EU/dL Ur Leukocyte Esterase SMALL H (NEGATIVE) Urine RBC 4-5 (0-2/HPF) Urine WBC 30-60 (0-5/HPF) Ur Epithelial Cells NOT SEEN (NONE-FEW) Amorphous Sediment FEW (NEGATIVE) Urine Bacteria 1+ H (NEGATIVE) Urine Mucus FEW (NONE-MOD) 10/13/18 10/13/18 Range/Units 04:40 04:40 WBC 5.37 (4.0-11.0) K/uL RBC 3.83 L (4.50-5.90) M/uL Hgb 11.3 L (13.0-17.0) g/dL Hct 34.9 L (38.0-50.0) % MCV 91.1 (80.0-98.0) fL MCH 29.5 (27.0-32.0) pg MCHC 32.4 (31.0-37.0) g/dL RDW Std Deviation 52.2 (28.0-62.0) fl RDW Coeff of Stefani 16 H (11.0-15.0) % Plt Count 61 L (150-400) K/uL MPV 10.00 (7.40-12.00) fL Add Manual Diff YES Neutrophils % (Manual) 57 (48.0-80.0) % Band Neutrophils % 6 % Lymphocytes % (Manual) 25 (16.0-40.0) % Monocytes % (Manual) 11 (0.0-15.0) % Basophils % (Manual) 1 (0.0-1.5) % Nucleated RBC % 0.0 /100WBC Absolute Seg Neuts 3.1 (1.4-5.7) Band Neutrophils # 0.3 Lymphocytes # (Manual) 1.3 (0.6-2.4) Monocytes # (Manual) 0.6 (0.0-0.8) Basophils # (Manual) 0.1 (0.0-0.1) Nucleated RBCs # 0 K/uL Sodium 135 L (136-148) mmol/L Potassium 3.9 (3.5-5.1) mmol/L Chloride 101 (98-107) mmol/L Carbon Dioxide 26.2 (21.0-32.0) mmol/L BUN 36 H (7.0-18.0) mg/dL Creatinine 0.9 (0.8-1.3) mg/dL Est Cr Clr Drug Dosing 51.12 mL/min Estimated GFR (MDRD) > 60.0 ml/min Glucose 104 (74-106) mg/dL Calcium 8.9 (8.5-10.1) mg/dL Total Bilirubin (0.2-1.0) mg/dL AST (15-37) IU/L ALT (14-63) IU/L Alkaline Phosphatase (46-116) U/L Total Protein (6.4-8.2) g/dL Albumin (3.4-5.0) g/dL Globulin (2.6-4.0) g/dL Albumin/Globulin Ratio (0.9-1.6) Urine Color Urine Appearance Urine pH (5.0-8.0) Ur Specific Falcon (1.001-1.035) Urine Protein (NEGATIVE) mg/dL Urine Glucose (UA) (NEGATIVE) mg/dL Urine Ketones (NEGATIVE) mg/dL Urine Occult Blood (NEGATIVE) Urine Nitrite (NEGATIVE) Urine Bilirubin (NEGATIVE) Urine Urobilinogen (<2.0) EU/dL Ur Leukocyte Esterase (NEGATIVE) Urine RBC (0-2/HPF) Urine WBC (0-5/HPF) Ur Epithelial Cells (NONE-FEW) Amorphous Sediment (NEGATIVE) Urine Bacteria (NEGATIVE) Urine Mucus (NONE-MOD) Med Orders - Current: Current Medications Fentanyl (Duragesic) 75 mcg TRDERM .Q72HR [facility] Ceftriaxone Sodium/Dextrose 1 (gm/ Premix) 50 mls @ 100 mls/hr IV Q24H [facility] Last Admin: 10/12/18 13:58 Dose: 100 mls/hr Levothyroxine Sodium (Levothyroxine) 25 mcg PO ACBREAKFAST [facility] Last Admin: 10/13/18 06:43 Dose: 25 mcg Ondansetron HCl (Zofran) 4 mg IVPUSH Q4H PRN PRN Reason: Nausea Ondansetron HCl (Zofran) 8 mg PO TID PRN PRN Reason: Nausea Oxycodone/Acetaminophen (Percocet 325-5 Mg) 2 tab PO Q6H PRN PRN Reason: Pain Last Admin: 10/12/18 14:53 Dose: 2 tab Eszopiclone [Lunesta (] 1mg) 2 each PO BEDTIME [facility] Last Admin: 10/12/18 21:04 Dose: Not Given Prochlorperazine Maleate (Compazine) 10 mg PO TID PRN PRN Reason: Nausea/Vomiting Discontinued Medications Enoxaparin Sodium (Lovenox) 40 mg SUBCUT Q24H [facility] Fentanyl (Duragesic) 25 mcg TRDERM .Q72HR [facility] Sodium Chloride (Normal Saline) 1,000 mls @ 999 mls/hr IV STAT ONE Stop: 10/12/18 13:52 Last Admin: 10/12/18 15:56 Dose: Not Given Sodium Chloride (Normal Saline) 1,000 mls @ 100 mls/hr IV STAT ONE Stop: 10/12/18 22:56 Last Admin: 10/12/18 13:56 Dose: 100 mls/hr - Exam General: Alert, Oriented, Cooperative Lungs: Clear to Auscultation, Normal Respiratory Effort Cardiovascular: Regular Rate, Regular Rhythm GI/Abdominal Exam: Normal Bowel Sounds, Soft, Non-Tender, No Distention, Other ( PEG tube in left side of abdomen) Extremities: Normal Inspection. No: Pedal Edema - Problem List Review Problem List Initiated/Reviewed/Updated: Yes - My Orders Last 24 Hours: My Active Orders 10/12/18 12:17 Up With Assistance [RC] ASDIRECTED Ondansetron [Zofran] 4 mg IVPUSH Q4H PRN Resuscitation Status Routine 10/12/18 12:18 Patient Status [ADT] Routine Oxygen Therapy [RC] PRN VTE/DVT Education [RC] PER UNIT ROUTINE Vital Signs [RC] Q4H 10/12/18 12:20 Sequential Compression Device [OM.PC] Per Unit Routine 10/12/18 12:22 Antiembolic Devices [RC] PER UNIT ROUTINE 10/12/18 12:36 Consult to Pump Rebuilder [CONS] Routine 10/12/18 12:39 Consult to Respiratory Therapy [Respiratory Care Assess and Treatment] [CONS] Routine 10/12/18 12:42 Aspiration Precautions [RC] ASDIRECTED Tube Feeding [Enteral Feedings] [RC] Click to Edit 10/12/18 12:49 Consult to Home Health [CONS] Routine Consult to Hospice [CONS] Routine 10/12/18 13:13 Blood Culture x2 Reflex Set [OM.PC] Stat 10/12/18 13:30 cefTRIAXone [Rocephin in Dextrose,Iso-Osm 1 GM/50 ML] 1 gm Premix Bag 1 bag IV Q24H 10/12/18 13:48 CULTURE BLOOD [BC] Stat 10/12/18 14:05 CULTURE BLOOD [BC] Stat 10/12/18 14:21 Acetaminophen/oxyCODONE [Percocet 325-5 MG] 2 tab PO Q6H PRN Ondansetron [Zofran] 8 mg PO TID PRN Prochlorperazine [Compazine] 10 mg PO TID PRN 10/12/18 14:43 fentaNYL [Duragesic] 75 mcg TRDERM .Q72HR 10/12/18 17:50 CULTURE URINE [RM] Stat 10/12/18 21:00 Patient's Own Medication [Ptom] 2 each PO BEDTIME 10/12/18 Lunch Soft Diet [DIET] 10/13/18 06:58 Cardiac Monitoring [RC] . DIRECTED 10/13/18 06:59 Elevate Head of Bed [Head of Bed Elevation] [RC] ASDIRECTED 10/13/18 07:30 Levothyroxine 25 mcg PO ACBREAKFAST - Plan Plan:: Assessment: 1. Urinary tract infection. 2. Dehydration. 3. Generalized weakness secondary to #1 and #2. 4. Failure to thrive secondary to protein calorie malnutrition, requiring PEG tube. 5. Laryngeal cancer with mets to lungs, on immunotherapy. 6. Chronic pain. 7. Thrombocytopenia. 8. Past medical history of CAD, AAA, bradycardia and COPD. Plan: 1. For UTI, continue IV ceftriaxone. Urine culture and blood cultures pending. 2. For dehydration, will give an additional 1 L of IV normal saline today. 3. For failure to thrive secondary to protein calorie malnutrition, patient receiving PEG tube feeds. Pump Rebuilder has been consulted. Soft diet ordered for pleasure feeds. 4. For generalized weakness, will order PT/OT. 5. For laryngeal cancer, patient receives immunotherapy every 3 weeks. He had his last dose of immunotherapy approximately 1 week ago. Family requested home health and hospice consult. 6. For chronic pain, patient's home pain medication regimen will be continued including fentanyl patch and Percocet 325/5 2 tabs PO q6h prn. 7. For thrombocytopenia, will monitor with next set of labs. 8. For past medical history, will continue with home medications.
[2018-10-13] MEDS: Acetaminophen/oxyCODONE 325-5 MG Tab PO PRN (10:20)
[2018-10-13] MEDS ORDERED: Sodium Chloride 0.9% 1,000 ML IV ONE (11:45)
[2018-10-13] MEDS: cefTRIAXone 1 GM in Premix Bag 1 BAG IV SCH (13:07)
[2018-10-13] MEDS ORDERED: Morphine 30 MG Tab.ER PO STA (15:58)
[2018-10-13] MEDS: Morphine 10 MG/0.5 ML Oral Syringe PO PRN (19:33)
[2018-10-13] MEDS: ESZOPICLONE 1 MG PO SCH (21:40)
[2018-10-14 06:35] LABS: CHLORIDE,CL 103 mmol/L (98-107); SODIUM,NA 138 mmol/L (136-148)
[2018-10-14] MEDS: Levothyroxine 25 MCG Tab PO SCH (06:38)
[2018-10-14 13:32] VITALS: BP 111/57
[2018-10-14] MEDS: Morphine 10 MG/0.5 ML Oral Syringe PO PRN (13:36)
--- NOTE | 2018-10-14 17:43 | PCM.DCSUM1 ---
<Ant Mcgowan M - Last Filed: 10/14/18 17:45> Discharge Summary - Hospital Course Free Text/Narrative:: 83-year-old male admitted for dehydration, failure to thrive and UTI. 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 Patient was treated with IV ceftriaxone for UTI throughout his hospitalization. Urine culture collected 1 day prior to admission during an ER visit was positive for staph epidermidis. Repeat urine culture during current hospitalization was negative. Blood cultures were negative. Patient also received IV fluids during his stay and regular feedings through his PEG tube. He reports feeling better on day of discharge and felt as if he had more energy then when he first came in. Patient and family met with with home health and decided they would like to pursue their services. Throughout hospitalization, patient complained of pain in his left jaw and neck area. He was discharged on morphine sulfate 15 mg PO q6h PRN x 5 days. He will likely require more optimized pain control regimen when he follows up with his primary care provider. - Discharge Data Discharge Date: 10/14/18 Discharge Disposition: Home, Self-Care 01 Condition: Fair - Patient Summary/Data Consults: Consultations 10/12/18 12:36 Consult to Hot Press Operator [CONS] Routine 10/12/18 12:39 Consult to Respiratory Therapy [Respiratory Care Assess and Treatment] [CONS] Routine 10/12/18 12:49 Consult to Home Health [CONS] Routine Consult to Hospice [CONS] Routine 10/13/18 11:10 Consult to Physical Therapy [PT Evaluation and Treatment] [CONS] Routine - Patient Instructions Diet, Other: tube feeds, soft diet for pleasure feeds Activity: As Tolerated Showering/Bathing: May Shower Notify Provider of: Fever, Increased Pain, Swelling and Redness, Drainage, Nausea and/or Vomiting - Discharge Plan *PRESCRIPTION DRUG MONITORING PROGRAM REVIEWED*: Not Applicable *COPY OF PRESCRIPTION DRUG MONITORING REPORT IN PATIENT MITALI: Not Applicable Prescriptions/Med Rec: Ciprofloxacin [Ciprofloxacin HCl] 500 mg PO BID 10 Days #20 tab Morphine Sulfate 15 mg PO Q6H PRN 5 Days #20 tablet PRN Reason: Pain Home Medications: Home Meds Ondansetron HCl [Zofran] 8 mg PO TID PRN 10/19/17 [History] Promethazine HCl 25 mg PO TID PRN 10/19/17 [History] Eszopiclone 2 mg PO BEDTIME 10/10/18 [History] Levothyroxine 1 tab PO DAILY 10/10/18 [History] Acetaminophen/oxyCODONE [Percocet 325-5 MG] 2 tab PO Q6H PRN 10/12/18 [History] Prochlorperazine Maleate [Compazine] 10 mg PO TID PRN 10/12/18 [History] Promethazine [Phenadoz] 1 applic RECTAL TID PRN 10/12/18 [History] Ciprofloxacin [Ciprofloxacin HCl] 500 mg PO BID 10 Days #20 tab 10/14/18 [Rx] Morphine Sulfate 15 mg PO Q6H PRN 5 Days #20 tablet 10/14/18 [Rx] Patient Handouts: Morphine oral solution, Ciprofloxacin tablets, Dehydration, Elderly, [id number] - Discharge Summary/Plan Comment DC Time >30 min.: No - Patient Data Vitals - Most Recent: Last Vital Signs Temp 98.1 F 10/14/18 12:00 Pulse 81 10/14/18 12:00 Resp 20 10/14/18 12:00 BP 111/57 L 10/14/18 12:00 Pulse Ox 94 L 10/14/18 12:00 Weight - Most Recent: 59.148 kg I&O - Last 24 hours: Intake & Output 10/14/18 10/14/18 10/14/18 06:59 14:59 22:59 Intake Total 1230 100 Output Total 1150 300 Balance 80 -200 Lab Results - Last 24 hrs: Laboratory Results - last 24 hr 10/14/18 10/14/18 Range/Units 05:49 05:49 WBC 4.32 (4.0-11.0) K/uL RBC 3.70 L (4.50-5.90) M/uL Hgb 11.2 L (13.0-17.0) g/dL Hct 33.4 L (38.0-50.0) % MCV 90.3 (80.0-98.0) fL MCH 30.3 (27.0-32.0) pg MCHC 33.5 (31.0-37.0) g/dL RDW Std Deviation 48.5 (28.0-62.0) fl RDW Coeff of Stefani 15 (11.0-15.0) % Plt Count 65 L (150-400) K/uL MPV 10.40 (7.40-12.00) fL Neut % (Auto) 56.6 (48.0-80.0) % Lymph % (Auto) 25.2 (16.0-40.0) % Kane % (Auto) 15.5 H (0.0-15.0) % Eos % (Auto) 2.5 (0.0-7.0) % Baso % (Auto) 0.2 (0.0-1.5) % Neut # (Auto) 2.4 (1.4-5.7) K/uL Lymph # (Auto) 1.1 (0.6-2.4) K/uL Kane # (Auto) 0.7 (0.0-0.8) K/uL Eos # (Auto) 0.1 (0.0-0.7) K/uL Baso # (Auto) 0.0 (0.0-0.1) K/uL Sodium 138 (136-148) mmol/L Potassium 3.9 (3.5-5.1) mmol/L Chloride 103 (98-107) mmol/L Carbon Dioxide 27.4 (21.0-32.0) mmol/L BUN 30 H (7.0-18.0) mg/dL Creatinine 0.8 (0.8-1.3) mg/dL Est Cr Clr Drug Dosing 57.51 mL/min Estimated GFR (MDRD) > 60.0 ml/min Glucose 94 (74-106) mg/dL Calcium 9.1 (8.5-10.1) mg/dL LIZ Results - Last 24 hrs: Microbiology 10/12/18 14:05 Aerobic Blood Culture - Preliminary Blood - Venous - Lab Draw NO GROWTH AFTER 2 DAYS Anaerobic Blood Culture - Preliminary NO GROWTH AFTER 2 DAYS 10/12/18 13:48 Aerobic Blood Culture - Preliminary Blood - Venous NO GROWTH AFTER 2 DAYS Anaerobic Blood Culture - Preliminary NO GROWTH AFTER 2 DAYS 10/12/18 17:50 Urine Culture - Final Urine, Clean Catch No Growth Med Orders - Current: Current Medications Discontinued Medications Enoxaparin Sodium (Lovenox) 40 mg SUBCUT Q24H BECCA Fentanyl (Duragesic) 25 mcg TRDERM .Q72HR BECCA Fentanyl (Duragesic) 75 mcg TRDERM .Q72HR BECCA Last Admin: 10/13/18 12:17 Dose: 75 mcg Heparin Sodium (Porcine) (Heparin Lock Flush 100 Units/Ml) 500 units FLUSH ONETIME ONE Stop: 10/14/18 13:15 Last Admin: 10/14/18 13:35 Dose: 500 units Sodium Chloride (Normal Saline) 1,000 mls @ 999 mls/hr IV STAT ONE Stop: 10/12/18 13:52 Last Admin: 10/12/18 15:56 Dose: Not Given Sodium Chloride (Normal Saline) 1,000 mls @ 100 mls/hr IV STAT ONE Stop: 10/12/18 22:56 Last Admin: 10/12/18 13:56 Dose: 100 mls/hr Ceftriaxone Sodium/Dextrose 1 (gm/ Premix) 50 mls @ 100 mls/hr IV Q24H [facility] Last Admin: 10/13/18 13:07 Dose: 100 mls/hr Sodium Chloride (Normal Saline) 1,000 mls @ 75 mls/hr IV STAT ONE Stop: 10/14/18 01:04 Last Admin: 10/13/18 12:21 Dose: 75 mls/hr Levothyroxine Sodium (Levothyroxine) 25 mcg PO ACBREAKFAST [facility] Last Admin: 10/14/18 06:38 Dose: 25 mcg Morphine Sulfate (Ms Contin) 30 mg PO NOW STA Stop: 10/13/18 15:59 Last Admin: 10/13/18 16:36 Dose: 30 mg Morphine Sulfate (Morphine 10 Mg/0.5 Ml Oral Syringe) 10 mg PO Q6H PRN PRN Reason: Pain Last Admin: 10/14/18 13:36 Dose: 10 mg Ondansetron HCl (Zofran) 4 mg IVPUSH Q4H PRN PRN Reason: Nausea Ondansetron HCl (Zofran) 8 mg PO TID PRN PRN Reason: Nausea Oxycodone/Acetaminophen (Percocet 325-5 Mg) 2 tab PO Q6H PRN PRN Reason: Pain Last Admin: 10/13/18 10:20 Dose: 2 tab Eszopiclone [Lunesta (] 1mg) 2 each PO BEDTIME [facility] Last Admin: 10/13/18 21:40 Dose: Not Given Prochlorperazine Maleate (Compazine) 10 mg PO TID PRN PRN Reason: Nausea/Vomiting <Efrain Long J - Last Filed: 10/16/18 19:42> Discharge Summary - Patient Summary/Data Consults: Consultations 10/12/18 12:36 Consult to Hot Press Operator [CONS] Routine 10/12/18 12:39 Consult to Respiratory Therapy [Respiratory Care Assess and Treatment] [CONS] Routine 10/12/18 12:49 Consult to Home Health [CONS] Routine Consult to Hospice [CONS] Routine 10/13/18 11:10 Consult to Physical Therapy [PT Evaluation and Treatment] [CONS] Routine - Patient Data Vitals - Most Recent: Last Vital Signs Temp 36.7 C 10/14/18 12:00 Pulse 81 10/14/18 12:00 Resp 20 10/14/18 12:00 BP 111/57 L 10/14/18 12:00 Pulse Ox 94 L 10/14/18 12:00 LIZ Results - Last 24 hrs: Microbiology 10/12/18 14:05 Aerobic Blood Culture - Preliminary Blood - Venous - Lab Draw NO GROWTH AFTER 4 DAYS Anaerobic Blood Culture - Preliminary NO GROWTH AFTER 4 DAYS 10/12/18 13:48 Aerobic Blood Culture - Preliminary Blood - Venous NO GROWTH AFTER 4 DAYS Anaerobic Blood Culture - Preliminary NO GROWTH AFTER 4 DAYS Med Orders - Current: Current Medications Discontinued Medications Enoxaparin Sodium (Lovenox) 40 mg SUBCUT Q24H BECCA Fentanyl (Duragesic) 25 mcg TRDERM .Q72HR BECCA Fentanyl (Duragesic) 75 mcg TRDERM .Q72HR [facility] Last Admin: 10/13/18 12:17 Dose: 75 mcg Heparin Sodium (Porcine) (Heparin Lock Flush 100 Units/Ml) 500 units FLUSH ONETIME ONE Stop: 10/14/18 13:15 Last Admin: 10/14/18 13:35 Dose: 500 units Sodium Chloride (Normal Saline) 1,000 mls @ 999 mls/hr IV STAT ONE Stop: 10/12/18 13:52 Last Admin: 10/12/18 15:56 Dose: Not Given Sodium Chloride (Normal Saline) 1,000 mls @ 100 mls/hr IV STAT ONE Stop: 10/12/18 22:56 Last Admin: 10/12/18 13:56 Dose: 100 mls/hr Ceftriaxone Sodium/Dextrose 1 (gm/ Premix) 50 mls @ 100 mls/hr IV Q24H [facility] Last Admin: 10/13/18 13:07 Dose: 100 mls/hr Sodium Chloride (Normal Saline) 1,000 mls @ 75 mls/hr IV STAT ONE Stop: 10/14/18 01:04 Last Admin: 10/13/18 12:21 Dose: 75 mls/hr Levothyroxine Sodium (Levothyroxine) 25 mcg PO ACBREAKFAST [facility] Last Admin: 10/14/18 06:38 Dose: 25 mcg Morphine Sulfate (Ms Contin) 30 mg PO NOW STA Stop: 10/13/18 15:59 Last Admin: 10/13/18 16:36 Dose: 30 mg Morphine Sulfate (Morphine 10 Mg/0.5 Ml Oral Syringe) 10 mg PO Q6H PRN PRN Reason: Pain Last Admin: 10/14/18 13:36 Dose: 10 mg Ondansetron HCl (Zofran) 4 mg IVPUSH Q4H PRN PRN Reason: Nausea Ondansetron HCl (Zofran) 8 mg PO TID PRN PRN Reason: Nausea Oxycodone/Acetaminophen (Percocet 325-5 Mg) 2 tab PO Q6H PRN PRN Reason: Pain Last Admin: 10/13/18 10:20 Dose: 2 tab Eszopiclone [Lunesta (] 1mg) 2 each PO BEDTIME [facility] Last Admin: 10/13/18 21:40 Dose: Not Given Prochlorperazine Maleate (Compazine) 10 mg PO TID PRN PRN Reason: Nausea/Vomiting - Free Text/Narrative Note: I have evaluated the patient. I have discussed findings and treatment plan with resident. I agree with the assessment and plan outlined in the following note.
== END 2018-10-14 13:50 | disposition home health service (06) | DRG 690 ==
LOC: MW.MS 12:05
PROVIDERS: ADMIT Internal Medicine; ATTEND Internal Medicine
DX: N39.0 Urinary tract infection, site not specified (principal); Z68.1 Body mass index [BMI] 19.9 or less, adult; E44.0 Moderate protein-calorie malnutrition; E86.0 Dehydration; R62.7 Adult failure to thrive; I25.10 Atherosclerotic heart disease of native coronary artery without angina pectoris; J44.9 Chronic obstructive pulmonary disease, unspecified; K21.9 Gastro-esophageal reflux disease without esophagitis; K59.09 Other constipation; N40.0 Benign prostatic hyperplasia without lower urinary tract symptoms; C32.9 Malignant neoplasm of larynx, unspecified; D69.6 Thrombocytopenia, unspecified; G89.29 Other chronic pain; Z86.010 Personal history of colon polyps; Z85.118 Personal history of other malignant neoplasm of bronchus and lung; Z92.25 Personal history of immunosuppression therapy; Z93.0 Tracheostomy status; Z79.899 Other long term (current) drug therapy; Z87.891 Personal history of nicotine dependence
CPT/HCPCS: 36415; 80048; 80053; 81001; 83735; 84443; 85025; 87040; 87086; 93005; A9270-GY; J0696; J1642; J7040

== ENCOUNTER 2018-11-05 08:55 | Emergency (ER) | payer MEDICARE, OTHER ==
[2018-11-05 09:23] VITALS: BP 140/55
--- NOTE | 2018-11-05 09:45 | EDM.PDOC ---
ED HPI GENERAL MEDICAL PROBLEM - General Chief Complaint: ENT Problem Stated Complaint: LEFT TOOTHACHE Time Seen by Provider: 11/05/18 09:35 - History of Present Illness INITIAL COMMENTS - FREE TEXT/NARRATIVE: HISTORY AND PHYSICAL: History of present illness: Patient is a 83-year-old white male history of head and neck cancer who is currently undergoing radiation therapy and immunotherapy who presents a concern of left jaw and neck pain patient is on high-dose morphine and breakthrough pain medication that was less effective last night this seems to have improved today and he is markedly improved compared to last night per daughter she does qualify this is quite severe and uncontrolled pain last night. He has suffered some dental issues including dental fracture presumptively related to the recent radiation. There's been no fever chills or other complaints Review of systems: As per history of present illness and below otherwise all systems reviewed and negative. Past medical history: As per history of present illness and as reviewed below otherwise noncontributory. Surgical history: As per history of present illness and as reviewed below otherwise noncontributory. Social history: No reported history of drug or alcohol abuse. Family history: As per history of present illness and as reviewed below otherwise noncontributory. Physical exam: HEENT: Atraumatic, normocephalic, pupils reactive, negative for conjunctival pallor or scleral icterus, mucous membranes moist, throat clear, neck supple, nontender, trachea midline. Patient has many missing teeth and extremely poor dentition there is no mandibular swelling on examination. Lungs: Clear to auscultation, breath sounds equal bilaterally, chest nontender. Heart: S1S2, regular, negative for clicks, rubs, or JVD. Abdomen: Soft, nondistended, nontender. Negative for masses or hepatosplenomegaly. Negative for costovertebral tenderness. Pelvis: Stable nontender. Genitourinary: Deferred. Rectal: Deferred. Extremities: unremarkable. Neuro: Answers questions and follows commands at baseline per daughter Diagnostics: None Therapeutics: None Impression: #1 history of head and neck cancer #2 rule out dentalgia Definitive disposition and diagnosis as appropriate pending reevaluation and review of above. Left Lower Tooth/Teeth Pain Score (Numeric/FACES): 10 - Related Data Allergies Allergy/AdvReac Type Severity Reaction Status Date / Time No Known Allergies Allergy Verified 11/05/18 09:23 Home Meds: Home Meds Ondansetron HCl [Zofran] 8 mg PO TID PRN 10/19/17 [History] Promethazine HCl 25 mg PO TID PRN 10/19/17 [History] Eszopiclone 2 mg PO BEDTIME 10/10/18 [History] Levothyroxine 1 tab PO DAILY 10/10/18 [History] Acetaminophen/oxyCODONE [Percocet 325-5 MG] 2 tab PO Q6H PRN 10/12/18 [History] Prochlorperazine Maleate [Compazine] 10 mg PO TID PRN 10/12/18 [History] Promethazine [Phenadoz] 1 applic RECTAL TID PRN 10/12/18 [History] Ciprofloxacin [Ciprofloxacin HCl] 500 mg PO BID 10 Days #20 tab 10/14/18 [Rx] Morphine Sulfate 15 mg PO Q6H PRN 5 Days #20 tablet 10/14/18 [Rx] Past Medical History HEENT History: Reports: Other (See Below) Other HEENT History: has dentures but does not wear them Cardiovascular History: Reports: CAD, Other (See Below) Other Cardiovascular History: Aortic Aneurysm Respiratory History: Reports: COPD Gastrointestinal History: Reports: Chronic Constipation, Colon Polyp, GERD Genitourinary History: Reports: BPH Musculoskeletal History: Reports: None Neurological History: Reports: Other (See Below) Other Neuro History: numbness to left side of jaw since surgery Psychiatric History: Reports: None Endocrine/Metabolic History: Reports: None Hematologic History: Reports: None Immunologic History: Reports: None Oncologic (Cancer) History: Reports: Lung, Other (See Below) Other Oncologic History: laryngeal & lung cancer Dermatologic History: Reports: Psoriasis - Infectious Disease History Infectious Disease History: Reports: Chicken Pox, Measles, Mumps - Past Surgical History Head Surgeries/Procedures: Reports: None HEENT Surgical History: Reports: Other (See Below) Other HEENT Surgeries/Procedures: laryngectomy with stoma for laryngeal cancer Respiratory Surgical History: Reports: Other (See Below) Other Respiratory Surgeries/Procedures: laryngectomy with stoma GI Surgical History: Reports: Other (See Below) Other GI Surgeries/Procedures: hx gastrostomy tube placement 11/04/17 Male Surgical History: Reports: None Neurological Surgical History: Reports: None Musculoskeletal Surgical History: Reports: Other (See Below) Other Musculoskeletal Surgeries/Procedures:: surgery to right toe Oncologic Surgical History: Reports: Other (See Below) Other Oncologic Surgeries/Procedures: brian cath placement Social & Family History - Family History Family Medical History: Noncontributory - Tobacco Use Smoking Status *Q: Never Smoker - Caffeine Use Caffeine Use: Reports: None - Recreational Drug Use Recreational Drug Use: No ED ROS GENERAL - Review of Systems Review Of Systems: ROS reveals no pertinent complaints other than HPI. ED EXAM, GENERAL - Physical Exam Exam: See Below (See dictation) Course - Vital Signs Last Recorded V/S: Last Vital Signs Temp 35.8 C 11/05/18 09:21 Pulse 43 L 11/05/18 09:21 Resp 18 11/05/18 09:21 BP 140/55 L 11/05/18 09:21 Pulse Ox 94 L 11/05/18 09:21 Departure - Departure Time of Disposition: 09:44 Disposition: Home, Self-Care 01 Condition: Fair Clinical Impression: Dentalgia, Head and neck malignancy - Discharge Information Referrals: Dimas Jamil MD [Primary Care Provider] - Additional Instructions: The following information is given to patients seen in the emergency department who are being discharged to home. This information is to outline your options for follow-up care. We provide all patients seen in our emergency department with a follow-up referral. The need for follow-up, as well as the timing and circumstances, are variable depending upon the specifics of your emergency department visit. If you don't have a primary care physician on staff, we will provide you with a referral. We always advise you to contact your personal physician following an emergency department visit to inform them of the circumstance of the visit and for follow-up with them and/or the need for any referrals to a consulting specialist. The emergency department will also refer you to a specialist when appropriate. This referral assures that you have the opportunity for followup care with a specialist. All of these measure are taken in an effort to provide you with optimal care, which includes your followup. Under all circumstances we always encourage you to contact your private physician who remains a resource for coordinating your care. When calling for followup care, please make the office aware that this follow-up is from your recent emergency room visit. If for any reason you are refused follow-up, please contact the [facility] emergency department at and asked to speak to the emergency department charge nurse. Augmentin as prescribed follow-up PMD and dentist as discussed return as needed as discussed
[2018-11-05] MEDS ORDERED: Lidocaine 2% Viscous Solution 15 ML Cup PO ONE (09:48)
[2018-11-05] MEDS ORDERED: Benzocaine 20% Topical Spray UD MUCMEM ONE (09:48)
== END 2018-11-05 10:00 | disposition home or self-care (01) ==
LOC: MW.ED 08:55
DX: C76.0 Malignant neoplasm of head, face and neck (principal); Z79.899 Other long term (current) drug therapy; Z98.890 Other specified postprocedural states
CPT/HCPCS: 99282; A9270

== ENCOUNTER 2018-11-16 11:45 | Emergency (ER) | payer MEDICARE, OTHER ==
[2018-11-16] MEDS ORDERED: Sodium Chloride 0.9% 10 ML Syringe FLUSH PRN (11:58)
[2018-11-16] MEDS ORDERED: Sodium Chloride 0.9% 2.5 ML Syringe FLUSH PRN (11:58)
--- NOTE | 2018-11-16 11:58 | EDM.PDOC ---
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 He's had a kidney infection in the past family is concerned is recurrent. Review of systems: As per history of present illness and below otherwise all systems reviewed and negative. Past medical history: As per history of present illness and as reviewed below otherwise noncontributory. Surgical history: As per history of present illness and as reviewed below otherwise noncontributory. Social history: No reported history of drug or alcohol abuse. Family history: As per history of present illness and as reviewed below otherwise noncontributory. Physical exam: General: Well developed, well nourished in NAD HEENT: Atraumatic, normocephalic, pupils reactive, negative for conjunctival pallor or scleral icterus, mucous membranes dry with thick sticky saliva, throat clear, tracheostomy site open, nontender, trachea midline. Lungs: Clear to auscultation, breath sounds equal bilaterally, chest nontender. Heart: S1S2, regular, negative for clicks, rubs, or JVD. Abdomen: Feeding tube in place, NABS, Soft, nondistended, nontender. Negative for masses or hepatosplenomegaly. Negative for costovertebral tenderness. Pelvis: Stable nontender. Genitourinary: Deferred. Rectal: Deferred. Extremities: Atraumatic, negative for cords or calf pain. Neurovascular unremarkable. Neuro: Awake, alert, Exam nonfocal. Skin:warm and dry Diagnostics: CBC, chemistry, UA, urine culture Therapeutics: IV hydrated with Normal saline ED Course: stable Impression: dehydration Prescriptions: none Plan: Take meds as directed, follow up with your primary care physician, return to ER if symptoms worsen or change. Definitive disposition and diagnosis as appropriate pending reevaluation and review of above. Left Face/Facial Pain Score (Numeric/FACES): 7 - Related Data Allergies Allergy/AdvReac Type Severity Reaction Status Date / Time No Known Allergies Allergy Verified 11/16/18 12:02 Home Meds: Home Meds Ondansetron HCl [Zofran] 8 mg PO TID PRN 10/19/17 [History] Promethazine HCl 25 mg PO TID PRN 10/19/17 [History] Eszopiclone 2 mg PO BEDTIME 10/10/18 [History] Levothyroxine 1 tab PO DAILY 10/10/18 [History] Prochlorperazine Maleate [Compazine] 10 mg PO TID PRN 10/12/18 [History] Promethazine [Phenadoz] 1 applic RECTAL TID PRN 10/12/18 [History] Morphine Sulfate [Morphine Sulfate ER] 30 mg BID 11/16/18 [History] Morphine [Morphine 10 MG/5 ML] 20 mg PO Q6HR PRN 11/16/18 [History] Past Medical History HEENT History: Reports: Other (See Below) Other HEENT History: has dentures but does not wear them Cardiovascular History: Reports: CAD, Other (See Below) Other Cardiovascular History: Aortic Aneurysm Respiratory History: Reports: COPD Gastrointestinal History: Reports: Chronic Constipation, Colon Polyp, GERD Genitourinary History: Reports: BPH Musculoskeletal History: Reports: None Neurological History: Reports: Other (See Below) Other Neuro History: numbness to left side of jaw since surgery Psychiatric History: Reports: None Endocrine/Metabolic History: Reports: None Hematologic History: Reports: None Immunologic History: Reports: None Oncologic (Cancer) History: Reports: Lung, Other (See Below) Other Oncologic History: laryngeal & lung cancer Dermatologic History: Reports: Psoriasis - Infectious Disease History Infectious Disease History: Reports: Chicken Pox, Measles, Mumps - Past Surgical History Head Surgeries/Procedures: Reports: None HEENT Surgical History: Reports: Other (See Below) Other HEENT Surgeries/Procedures: laryngectomy with stoma for laryngeal cancer Respiratory Surgical History: Reports: Other (See Below) Other Respiratory Surgeries/Procedures: laryngectomy with stoma GI Surgical History: Reports: Other (See Below) Other GI Surgeries/Procedures: hx gastrostomy tube placement 11/04/17 Male Surgical History: Reports: None Neurological Surgical History: Reports: None Musculoskeletal Surgical History: Reports: Other (See Below) Other Musculoskeletal Surgeries/Procedures:: surgery to right toe Oncologic Surgical History: Reports: Other (See Below) Other Oncologic Surgeries/Procedures: brian cath placement Social & Family History - Family History Family Medical History: Noncontributory - Caffeine Use Caffeine Use: Reports: None ED ROS GENERAL - Review of Systems Review Of Systems: See Below ED EXAM, GENERAL - Physical Exam Exam: See Below Course - Vital Signs Last Recorded V/S: Last Vital Signs Temp 98.3 F 11/16/18 13:57 Pulse 68 11/16/18 13:57 Resp 18 11/16/18 11:59 BP 165/78 H 11/16/18 13:57 Pulse Ox 91 L 11/16/18 13:57 - Orders/Labs/Meds Orders: Active Orders 24 hr Category Date Time Status B-TYPE NATRIURETIC PEPTIDE,BNP [CHEM] Stat Lab 11/16/18 12:25 Received CULTURE URINE [RM] Routine Lab 11/16/18 12:45 Received Sodium Chloride 0.9% [Saline Flush] Med 11/16/18 11:58 Active 10 ml FLUSH ASDIRECTED PRN Sodium Chloride 0.9% [Saline Flush] Med 11/16/18 11:58 Active 2.5 ml FLUSH ASDIRECTED PRN Saline Lock Insert [OM.PC] Stat Oth 11/16/18 11:57 Ordered Medication Orders Sodium Chloride (Saline Flush) 10 ml FLUSH ASDIRECTED PRN PRN Reason: Keep Vein Open Sodium Chloride (Saline Flush) 2.5 ml FLUSH ASDIRECTED PRN PRN Reason: Keep Vein Open Labs: Laboratory Tests 11/16/18 11/16/18 11/16/18 Range/Units 12:25 12:25 12:45 WBC 5.53 (4.0-11.0) K/uL RBC 3.99 L (4.50-5.90) M/uL Hgb 11.8 L (13.0-17.0) g/dL Hct 36.1 L (38.0-50.0) % MCV 90.5 (80.0-98.0) fL MCH 29.6 (27.0-32.0) pg MCHC 32.7 (31.0-37.0) g/dL RDW Std Deviation 52.5 (28.0-62.0) fl RDW Coeff of Stefani 16 H (11.0-15.0) % Plt Count 55 L (150-400) K/uL MPV 10.30 (7.40-12.00) fL Neut % (Auto) 75.8 (48.0-80.0) % Lymph % (Auto) 11.4 L (16.0-40.0) % [place] % (Auto) 11.0 (0.0-15.0) % Eos % (Auto) 1.6 (0.0-7.0) % Baso % (Auto) 0.2 (0.0-1.5) % Neut # (Auto) 4.2 (1.4-5.7) K/uL Lymph # (Auto) 0.6 (0.6-2.4) K/uL [place] # (Auto) 0.6 (0.0-0.8) K/uL Eos # (Auto) 0.1 (0.0-0.7) K/uL Baso # (Auto) 0.0 (0.0-0.1) K/uL Nucleated RBC % 0.0 /100WBC Nucleated RBCs # 0 K/uL Sodium 136 (136-148) mmol/L Potassium 4.0 (3.5-5.1) mmol/L Chloride 98 (98-107) mmol/L Carbon Dioxide 29.1 (21.0-32.0) mmol/L BUN 24 H (7.0-18.0) mg/dL Creatinine 0.9 (0.8-1.3) mg/dL Est Cr Clr Drug Dosing TNP Estimated GFR (MDRD) > 60.0 ml/min Glucose 107 H (74-106) mg/dL Calcium 9.5 (8.5-10.1) mg/dL Total Bilirubin 0.4 (0.2-1.0) mg/dL AST 22 (15-37) IU/L ALT 32 (14-63) IU/L Alkaline Phosphatase 72 (46-116) U/L Total Protein 7.0 (6.4-8.2) g/dL Albumin 2.7 L (3.4-5.0) g/dL Globulin 4.3 H (2.6-4.0) g/dL Albumin/Globulin Ratio 0.6 L (0.9-1.6) Urine Color YELLOW Urine Appearance CLEAR Urine pH 7.5 (5.0-8.0) Ur Specific [place] 1.015 (1.001-1.035) Urine Protein 30 H (NEGATIVE) mg/dL Urine Glucose (UA) NEGATIVE (NEGATIVE) mg/dL Urine Ketones NEGATIVE (NEGATIVE) mg/dL Urine Occult Blood TRACE-INTACT H (NEGATIVE) Urine Nitrite NEGATIVE (NEGATIVE) Urine Bilirubin NEGATIVE (NEGATIVE) Urine Urobilinogen 0.2 (<2.0) EU/dL Ur Leukocyte Esterase NEGATIVE (NEGATIVE) Urine RBC 0-1 (0-2/HPF) Urine WBC RARE (0-5/HPF) Ur Epithelial Cells FEW (NONE-FEW) Urine Bacteria FEW (NEGATIVE) Urine Mucus LIGHT (NONE-MOD) Meds: Medications Generic Name Dose Route Start Last Admin Trade Name Freq PRN Reason Stop Dose Admin Sodium Chloride 10 ml 11/16/18 11:58 Saline Flush FLUSH ASDIRECTED PRN Keep Vein Open Sodium Chloride 2.5 ml 11/16/18 11:58 Saline Flush FLUSH ASDIRECTED PRN Keep Vein Open Discontinued Medications Generic Name Dose Route Start Last Admin Trade Name Freq PRN Reason Stop Dose Admin Sodium Chloride 1,000 mls @ 999 mls/hr 11/16/18 12:56 11/16/18 13:02 Normal Saline IV 11/16/18 13:56 999 mls/hr .Bolus ONE Administration Ondansetron HCl 4 mg 11/16/18 12:30 11/16/18 13:02 Zofran IVPUSH 11/16/18 12:31 4 mg ONETIME ONE Administration Departure - Departure Time of Disposition: 14:13 Disposition: Home, Self-Care 01 Clinical Impression: Dehydration - Discharge Information *PRESCRIPTION DRUG MONITORING PROGRAM REVIEWED*: Not Applicable *COPY OF PRESCRIPTION DRUG MONITORING REPORT IN PATIENT MITALI: Not Applicable Instructions: Dehydration, Adult, [id number] Referrals: Dimas Jamil MD [Primary Care Provider] - Forms: ED Department Discharge Additional Instructions: The following information is given to patients seen in the emergency department who are being discharged to home. This information is to outline your options for follow-up care. We provide all patients seen in our emergency department with a follow-up referral. The need for follow-up, as well as the timing and circumstances, are variable depending upon the specifics of your emergency department visit. If you don't have a primary care physician on staff, we will provide you with a referral. We always advise you to contact your personal physician following an emergency department visit to inform them of the circumstance of the visit and for follow-up with them and/or the need for any referrals to a consulting specialist. The emergency department will also refer you to a specialist when appropriate. This referral assures that you have the opportunity for follow-up care with a specialist. All of these measure are taken in an effort to provide you with optimal care, which includes your follow-up. Under all circumstances we always encourage you to contact your private physician who remains a resource for coordinating your care. When calling for follow-up care, please make the office aware that this follow-up is from your recent emergency room visit. If for any reason you are refused follow-up, please contact the [facility] Emergency Department at and asked to speak to the emergency department charge nurse. [facility] [address] [place] [address] - My Orders Last 24 Hours: My Active Orders 11/16/18 11:57 Saline Lock Insert [OM.PC] Stat 11/16/18 11:58 Sodium Chloride 0.9% [Saline Flush] 10 ml FLUSH ASDIRECTED PRN Sodium Chloride 0.9% [Saline Flush] 2.5 ml FLUSH ASDIRECTED PRN 11/16/18 12:25 B-TYPE NATRIURETIC PEPTIDE,BNP [CHEM] Stat 11/16/18 12:45 CULTURE URINE [RM] Routine - Assessment/Plan Last 24 Hours: My Active Orders 11/16/18 11:57 Saline Lock Insert [OM.PC] Stat 11/16/18 11:58 Sodium Chloride 0.9% [Saline Flush] 10 ml FLUSH ASDIRECTED PRN Sodium Chloride 0.9% [Saline Flush] 2.5 ml FLUSH ASDIRECTED PRN 11/16/18 12:25 B-TYPE NATRIURETIC PEPTIDE,BNP [CHEM] Stat 11/16/18 12:45 CULTURE URINE [RM] Routine
[2018-11-16] MEDS ORDERED: Ondansetron 4 MG/2 ML SDV IVPUSH ONE (12:30)
[2018-11-16] MEDS ORDERED: Sodium Chloride 0.9% 1,000 ML IV ONE (12:56)
[2018-11-16 13:38] LABS: BLOOD UREA NITROGEN,BUN 24 mg/dL (7.0-18.0); CARBON DIOXIDE,CO2 29.1 mmol/L (21.0-32.0); CHLORIDE,CL 98 mmol/L (98-107); GLUCOSE RANDOM 107 mg/dL (74-106); SODIUM,NA 136 mmol/L (136-148)
[2018-11-16 13:58] VITALS: BP 165/78; PULSE 68
== END 2018-11-16 14:37 | disposition home or self-care (01) ==
LOC: MW.ED 11:45
DX: E86.0 Dehydration (principal); I25.10 Atherosclerotic heart disease of native coronary artery without angina pectoris; Z85.89 Personal history of malignant neoplasm of other organs and systems; Z79.899 Other long term (current) drug therapy
CPT/HCPCS: 36415; 80053; 81001; 83880; 85025; 87086; 96361; 96374; 99285; J1642; J2405; J7040; 99283